=== PATIENT | male | born 1950 | race Caucasian/White ===

== ENCOUNTER 2020-01-22 08:55 | Inpatient (IN) | payer MEDICARE ==
[~2020-01-22] VITALS: Ht 170.2 cm; Wt 162.5 kg
[2020-01-22 09:05] VITALS: BP 134/90
--- NOTE | 2020-01-22 09:05 | NUR ---
ED Nurse Note: Patient RED from [address] d/t 06/30, aching, non-radiating, upper right quadrant, abdominal pain x 2 weeks. Patient states he was dx w/ kidney cancer recently and has gallstones. Patient AxO x 4, no s/s of acute distress. Patient on the monitoring engineer, placed in hospital gown, bed in lowest position.
--- NOTE | 2020-01-22 09:09 | Emergency Room Report ---
History of Present Illness General Chief Complaint: Abdominal Pain Source: Patient, EMS Present Illness HPI Patient is a 69-year-old male sent in from facility for increased abdominal pain. Prior history of cancer as well as CHF and DVT. Patient had recent CT imaging which showed increased biliary duct dilation. Patient a prior history of CHF and had been taking Lasix. He denied any increased shortness of breath or increased leg swelling at this time. Had been able to ambulate with a walker. He reports urinating. Denies any fever. Patient reports having some right upper abdominal pain. Allergies: Coded Allergies: SULFAMETHOXAZOLE (Verified Allergy, Unknown, 01/22/20) TRIMETHOPRIM (Verified Allergy, Unknown, 01/22/20) VANCOMYCIN (Verified Allergy, Unknown, 01/22/20) COVID-19 Screening Contact w/high risk pt: No Experienced COVID-19 symptoms?: No COVID-19 Testing performed ROLL CAPPER: Yes - 01/06/20 COVID-19 Screening: Negative COVID-19 COVID-19 Testing Source: unk source Patient History Past Medical History: see triage record Reviewed Nursing Documentation: PMH: Agreed; PSxH: Agreed Nursing Documentation-PMH Hx Cardiac Problems: Yes - DVT, CHF, IN, AFIB Hx Gastrointestinal Problems: Yes - DIVERTICULOSIS, DIAPHRAGMATIC HERNIA, GERD Hx Cerebrovascular Accident: Yes - PVD,LUMBAR DISC Review of Systems All Other Systems: negative except mentioned in HPI Physical Exam Vital Signs Date Time Temp Pulse Resp B/P (MAP) Pulse Ox O2 Delivery O2 Flow Rate FiO2 01/22/20 08:58 98.1 70 20 134/90 (105) 94 Room Air Sp02 EP Interpretation: reviewed, normal General Appearance: normal inspection, alert, GCS 15, non-toxic, obese, Chronically Ill Head: atraumatic ENT: normal ENT inspection, hearing grossly normal, normal voice Neck: normal inspection, full range of motion, supple, no bony tend Respiratory: normal inspection, lungs clear, normal breath sounds, no respiratory distress, no retraction, no wheezing Cardiovascular #1: regular rate, rhythm, no edema, edema - 3 + Gastrointestinal: normal inspection, normal bowel sounds, non tender, soft, no guarding, no hernia Genitourinary: no CVA tenderness Musculoskeletal: normal inspection, back normal, normal range of motion Neurologic: alert, motor strength/tone normal, oriented x3, responsive, speech normal, normal inspection Psychiatric: normal inspection, judgement/insight normal, mood/affect normal Medical Decision Making ER Course Patient presented for abdominal pain. Differential diagnosis include was not limited to choledocholithiasis, cholecystitis, pancreatitis, among others. Because of complexity of patient's case laboratory tests and imaging studies were ordered. Last Vital Signs Date Time Temp Pulse Resp B/P (MAP) Pulse Ox O2 Delivery O2 Flow Rate FiO2 01/22/20 08:58 98.1 70 20 134/90 (105) 94 Room Air Carl Hester MD Jan 22, 2020 09:09
[2020-01-22] MEDS ORDERED: PROTONIX40 MG ORAL (09:24)
[2020-01-22] MEDS ORDERED: MILK OF MA2400 MG/10 ORAL (09:24)
[2020-01-22] MEDS ORDERED: POTASSIUM CHLO20 ME2 ORAL (09:24)
[2020-01-22] MEDS ORDERED: PENTOXIFYLLINE400 MG ORAL (09:24)
[2020-01-22] MEDS ORDERED: FUROSEMIDE20 M1 ORAL (09:24)
[2020-01-22] MEDS ORDERED: ASPIRIN EC81 MG ORAL (09:24)
[2020-01-22] MEDS ORDERED: BISACODYL5 MG ORAL (09:24)
[2020-01-22] MEDS ORDERED: TRAMADOL HCL50 MG ORAL (09:24)
[2020-01-22] MEDS ORDERED: COMBIVENT RESPIM4 GM IH (09:24)
--- NOTE | 2020-01-22 09:45 | NUR ---
ED Nurse Note: US at bedside
--- NOTE | 2020-01-22 10:00 | NUR ---
ED Nurse Note: 22 g IV started in right wrist, blood and urine sent to lab
[2020-01-22 11:23] LABS: BASOPHILS % (AUTO) 1.1 % (0.0-2.0); EOSINOPHILS % (AUTO) 3.5 % (0.0-3.0); HEMATOCRIT 42.2 % (42.0-52.0); HEMOGLOBIN 13.5 G/DL (14.2-18.0); LYMPHOCYTES % (AUTO) 23.8 % (20.0-45.0); MEAN CORPUSCULAR VOLUME 103 FL (80-99); MONOCYTES % (AUTO) 11.8 % (1.0-10.0); NEUTROPHILS % (AUTO) 59.8 % (45.0-75.0); PLATELET COUNT 140 K/UL (150-450); RED BLOOD COUNT 4.09 M/UL (4.70-6.10); RED CELL DISTRIBUTION WIDTH 13.4 % (11.6-14.8); WHITE BLOOD COUNT 5.3 K/UL (4.8-10.8)
[2020-01-22 11:26] LABS: ANION GAP 7 mmol/L (5-15); BLOOD UREA NITROGEN 16 mg/dL (7-18); CALCIUM 8.6 MG/DL (8.5-10.1); CARBON DIOXIDE 30 MMOL/L (21-32); CHLORIDE 106 MMOL/L (98-107); CREATININE 1.2 MG/DL (0.55-1.30); POTASSIUM 4.2 MMOL/L (3.5-5.1); SODIUM 143 MMOL/L (136-145)
[2020-01-22 11:30] LABS: ALANINE AMINOTRANSFERASE 21 U/L (12-78); ALBUMIN 3.2 G/DL (3.4-5.0); ALKALINE PHOSPHATASE 61 U/L (46-116); ASPARTATE AMINO TRANSFERASE 15 U/L (15-37); BILIRUBIN,TOTAL 0.5 MG/DL (0.2-1.0)
[2020-01-22 11:35] LABS: APPEARANCE,URINE CLEAR; BILIRUBIN, URINE NEGATIVE (NEGATIVE); COLOR,URINE YELLOW; GLUCOSE, URINE (UA) NEGATIVE (NEGATIVE); KETONES,URINE NEGATIVE (NEGATIVE); LEUKOCYTE ESTERASE ,URINE NEGATIVE (NEGATIVE); NITRITE,URINE NEGATIVE (NEGATIVE); PH,URINE 6 (4.5-8.0); PROTEIN,URINE NEGATIVE (NEGATIVE); UROBILINOGEN,URINE NORMAL MG/DL (0.0-1.0)
--- NOTE | 2020-01-22 11:45 | NUR ---
ED Nurse Note: Patient resting in bed, no s/s of acute distress. Belonging list reviewed with patient and completed.
[2020-01-22] MEDS ORDERED: traMADol 50mg tab ORAL PRN (19:00)
[2020-01-22] MEDS ORDERED: Albuterol/Ipratropium 3ml neb HHN PRN (19:00)
--- NOTE | 2020-01-22 19:14 | History and Physical ---
History of Present Illness General Date patient seen: Jan 22, 2020 Time patient seen: 12:00 Reason for Hospitalization: Abdominal Pain Present Illness HPI 69-year-old male sent in from [facility] in [place] for increased abdominal pain. Prior history of cancer reported renal cancer ( patient has electronic files and will email them for review later today ) as well as systolic CHF which is compensated, prior PE and DVT with intolerance to anticoagulation due to reported hemorrhage in the renal parenchyma, Left renal cancer of uncertain etiology and non intervened on due to unclear reasons ( reports pending review ). Patient had recent CT imaging which showed increased biliary duct dilation and porcelain "mummified" gallbladder. He denied any increased shortness of breath or increased leg swelling at this time and has baseline venous stasis and lower extremity edema with chronic skin changes. He has been able to ambulate with a walker. He reports urinating. Denies any fever. Patient reports having some right upper abdominal pain and nausea. Admission is needed for surgical consultation and assessment. Allergies: Coded Allergies: SULFAMETHOXAZOLE (Verified Allergy, Unknown, 01/22/20) TRIMETHOPRIM (Verified Allergy, Unknown, 01/22/20) VANCOMYCIN (Verified Allergy, Unknown, 01/22/20) COVID-19 Screening Contact w/high risk pt: No Recent Travel to affected area: No Experienced COVID-19 symptoms?: No Medication History Scheduled Aspirin Ec* (Aspirin Ec*), 81 MG ORAL DAILY, (Reported) Bisacodyl* (Dulcolax*), 10 MG ORAL DAILY, (Reported) Furosemide* (Lasix*), 20 MG ORAL DAILY, (Reported) Magnesium Hydroxide* (Milk Of Magnesia*), 30 ML ORAL DAILY, (Reported) Pantoprazole* (Protonix*), 20 MG ORAL DAILY, (Reported) Pentoxifylline* (Trental*), 400 MG ORAL THREE TIMES A DAY, (Reported) Potassium Chloride (Potassium Chloride), 20 MEQ ORAL DAILY, (Reported) Scheduled PRN Tramadol Hcl* (Ultram*), 50 MG ORAL Q6H PRN for For Pain, (Reported) Miscellaneous Medications Ipratropium/Albuterol Sulfate (Combivent Resp[facility]at [facility]), 4 GM IH, ( Reported) Patient History Healthcare decision maker Resuscitation status Advanced Directive on File Review of Systems Constitutional: Reports: see HPI All Other Systems: negative except mentioned in HPI Physical Exam General Appearance: WD/WN, moderate distress Lines, tubes and drains: peripheral HEENT: normocephalic, atraumatic Neck: non-tender Respiratory/Chest: lungs clear Cardiovascular/Chest: normal rate Abdomen: soft, other - obese with some RUQ discomfort. 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 Musculoskeletal: normal muscle bulk Last 24 Hour Vital Signs Date Time Temp Pulse Resp B/P (MAP) Pulse Ox O2 Delivery O2 Flow Rate FiO2 01/22/20 09:05 98.1 72 20 134/90 94 Room Air 01/22/20 09:05 72 20 Room Air 01/22/20 08:58 98.1 70 20 134/90 (105) 94 Room Air Laboratory Tests Test 01/22/20 10:55 01/22/20 11:00 White Blood Count 5.3 K/UL (4.8-10.8) Red Blood Count 4.09 M/UL (4.70-6.10) L Hemoglobin 13.5 G/DL (14.2-18.0) L Hematocrit 42.2 % (42.0-52.0) Mean Corpuscular Volume 103 FL (80-99) H Mean Corpuscular Hemoglobin 33.2 PG (27.0-31.0) H Mean Corpuscular Hemoglobin Concent 32.1 G/DL (32.0-36.0) Red Cell Distribution Width 13.4 % (11.6-14.8) Platelet Count 140 K/UL (150-450) L Mean Platelet Volume 7.0 FL (6.5-10.1) Neutrophils (%) (Auto) 59.8 % (45.0-75.0) Lymphocytes (%) (Auto) 23.8 % (20.0-45.0) Monocytes (%) (Auto) 11.8 % (1.0-10.0) H Eosinophils (%) (Auto) 3.5 % (0.0-3.0) H Basophils (%) (Auto) 1.1 % (0.0-2.0) Prothrombin Time 11.4 SEC (9.30-11.50) Prothromb Time International Ratio 1.0 (0.9-1.1) Sodium Level 143 MMOL/L (136-145) Potassium Level 4.2 MMOL/L (3.5-5.1) Chloride Level 106 MMOL/L (98-107) Carbon Dioxide Level 30 MMOL/L (21-32) Anion Gap 7 mmol/L (5-15) Blood Urea Nitrogen 16 mg/dL (7-18) Creatinine 1.2 MG/DL (0.55-1.30) Estimat Glomerular Filtration Rate > 60 mL/min (>60) Glucose Level 101 MG/DL (74-106) Calcium Level 8.6 MG/DL (8.5-10.1) Total Bilirubin 0.5 MG/DL (0.2-1.0) Aspartate Amino Transf (AST/SGOT) 15 U/L (15-37) Alanine Aminotransferase (ALT/SGPT) 21 U/L (12-78) Alkaline Phosphatase 61 U/L (46-116) Total Protein 6.5 G/DL (6.4-8.2) Albumin 3.2 G/DL (3.4-5.0) L Globulin 3.3 g/dL Albumin/Globulin Ratio 1.0 (1.0-2.7) Lipase 164 U/L (73-393) Urine Color Yellow Urine Appearance Clear Urine pH 6 (4.5-8.0) Urine Specific [place] 1.020 (1.005-1.035) Urine Protein Negative (NEGATIVE) Urine Glucose (UA) Negative (NEGATIVE) Urine Ketones Negative (NEGATIVE) Urine Blood Negative (NEGATIVE) Urine Nitrite Negative (NEGATIVE) Urine Bilirubin Negative (NEGATIVE) Urine Urobilinogen Normal MG/DL (0.0-1.0) Urine Leukocyte Esterase Negative (NEGATIVE) Height (Feet): 5 Height (Inches): 7.00 Weight (Pounds): 350 Assessment/Plan Status: stable Assessment/Plan: 69-year-old male with prior history of possible renal cancer and gallstones presenting with: # Abdominal pain RUQ US with gallstones. Reportedly no CBD dilatation ( report pending as computer system with problems today) WIll review findings and surgery consultation with Dr. Cordon requested LFT's and TB within normal limits Symptomatic treatment with tramadol # Reported history of renal cancer Review patient's medical records. He was given my email ( [email or web address]) to send the files and not received yet. COnsider oncology consultation. # PVD COntinue Pentoxyphilline and asa # History of systolic CHF COntinue Lasix and KCl replacement # 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 Use only ASA for now bilateral lower extremity US ordered. # FULL CODE # disposition likely to return to SNF Benita Braxton MD Jan 22, 2020 19:14
--- NOTE | 2020-01-22 19:30 | NUR ---
NURSE NOTES: Received pt from FACTORY REPRESENTATIVEJEANNA Rivera, all admission assessments and instructions done and pt verbally confirmed to understand all. pt is alert and orient x4. pt is in RA, No SOB or acute respiratory distress noted. pt has intact iv access R wrist 22g SL. Pt is on continues heart monitoring. Dr Braxton is aware about admission and all labs and V/S and ECG, all orders noted and carried out. bi lower extremities is edematous and very dry and redness, Dr Braxton is aware and ordered bruno duplex, noted and carried out. all belongings are with pt and pt signed belongings list. pt consumed 100% dinner and tolerated well. Dr Flores called and ask to tell Dr Braxton about L renal tumor, Dr Braxton is aware, MD will F/U. all needs attended, bed is locked and is in the lowest position, call light within easy reach. will continue to monitor. Report given to JEANNA Whitfield.
--- NOTE | 2020-01-22 19:56 | NUR ---
NURSE NOTES: Received report from JEANNA Singh. Patient is awake, alert and oriented x 4. engine monitor is in place, shows sinus rhythm with no chest pain reported. On regular diet, instructed and amenable. On room air and no shortness of breath nor desaturation at this time. IV site is on right wrist g-22 saline lock that is patent and intact. Patient is ambulatory but weak and with walker at bedside. Safety measures are in place, bed in lowest and locked position, side rails up x 2. Call light button and bedside table within reach, instructed to call for any assistance needed. Will continue plan of care.
[2020-01-22 20:00] VITALS: BP 131/70
[2020-01-22] MEDS: Aspirin Baby 81mg ORAL SCH (21:23)
[2020-01-23] VITALS: BP 138/84
[2020-01-23 04:00] VITALS: BP 132/75
[2020-01-23 06:20] LABS: BASOPHILS % (AUTO) 1.7 % (0.0-2.0); EOSINOPHILS % (AUTO) 3.6 % (0.0-3.0); HEMATOCRIT 42.5 % (42.0-52.0); HEMOGLOBIN 14.1 G/DL (14.2-18.0); LYMPHOCYTES % (AUTO) 25.6 % (20.0-45.0); MEAN CORPUSCULAR VOLUME 100 FL (80-99); MONOCYTES % (AUTO) 8.3 % (1.0-10.0); NEUTROPHILS % (AUTO) 60.8 % (45.0-75.0); PLATELET COUNT 152 K/UL (150-450); RED BLOOD COUNT 4.24 M/UL (4.70-6.10); RED CELL DISTRIBUTION WIDTH 12.5 % (11.6-14.8); WHITE BLOOD COUNT 4.4 K/UL (4.8-10.8)
[2020-01-23 06:39] LABS: PHOSPHORUS 4.4 MG/DL (2.5-4.9)
[2020-01-23 06:43] LABS: ALANINE AMINOTRANSFERASE 20 U/L (12-78); ALBUMIN/GLOBULIN RATIO 0.9 (1.0-2.7); ALKALINE PHOSPHATASE 66 U/L (46-116); ANION GAP 7 mmol/L (5-15); ASPARTATE AMINO TRANSFERASE 16 U/L (15-37); BILIRUBIN,TOTAL 0.6 MG/DL (0.2-1.0); BLOOD UREA NITROGEN 14 mg/dL (7-18); CALCIUM 8.4 MG/DL (8.5-10.1); CARBON DIOXIDE 27 MMOL/L (21-32); CHLORIDE 107 MMOL/L (98-107); CREATININE 1.1 MG/DL (0.55-1.30); POTASSIUM 4.4 MMOL/L (3.5-5.1); SODIUM 141 MMOL/L (136-145)
--- NOTE | 2020-01-23 07:30 | NUR ---
NURSE NOTES: Received pt from JEANNA Whitfield, pt is alert and orient x4. pt is in RA, No SOB or acute respiratory distress noted. pt has intact iv access R wrist 22g SL. Pt is on continues heart monitoring. bi lower extremities is edematous and very dry and redness, no complain of pain at this moment, all needs attended, bed is locked and is in the lowest position, call light within easy reach. will continue to monitor.
--- NOTE | 2020-01-23 07:30 | NUR ---
NURSE HAND-OFF REPORT: Important Events on Shift: patient is resting well the whole shift Patient Status: Patient is awake, on bed eating breakfast in stable condition without complaints made at this time Diet: Regular diet Pending Orders: Venous duplex Pending Results/Labs: none Pending MD notification: none Latest Vital Signs: Temperature 97.7 , Pulse 64 , B/P 132 /75 , Respiratory Rate 19 , O2 SAT 98 , Room Air, O2 Flow Rate . Vital Sign Comment: stable the whole shift EKG Rhythm: Sinus Bradycardia Rhythm change?: Y MD Notified?: N - MD Response: Latest [place] Fall Score: 45 Fall Risk: High Risk Safety Measures: Call light Within Reach, Bed Alarm Zone 1, Side Rails Side Rails x2, Bed position Low and Locked. Fall Precautions: Yellow Socks Yellow Gown Door Sign Patient Fall Education Report given to JEANNA Singh.
[2020-01-23 08:00] VITALS: BP 134/81
[2020-01-23] MEDS: Aspirin Baby 81mg ORAL SCH ×2 (09:27→17:35)
--- NOTE | 2020-01-23 11:00 | General Progress Note ---
Assessment/Plan Status: stable, unchanged Assessment/Plan: 69-year-old male with prior history of possible renal cancer and gallstones presenting with: # Abdominal pain RUQ US with gallstones AND 4.8 CM X 5.6 CM LEFT LOWER POLE RENAL MASS [facility] CTAP W CONTRAST 12/28/19 5.8 CM PARTIALLY EXOPHYTIC HETEROGENEOUSLY ENHANCING SOFT TISSUE MASS AT THE INFERIOR POLE OF THE LEFT KIDNEY. MOST CONSISTENT WITH RENAL CELL CARCINOMA, NO RENAL VEIN INVASION HEPATIC STEATOSIS CHOLELITHIASIS COLONIC DIVERTICULOSIS WITHOUT DIVERTICULITIS SEVERE LEFT HIP OSTEOARTHRITIS Will request oncology consultation for guidance Surgery consultation pending with Dr. Poole. LFT's and TB within normal limits Symptomatic treatment with tramadol # Reported history of renal cancer - Not operated at [facility] last month. Will request hospital records for detail and oncology consultation. [facility] CTAP W CONTRAST 12/28/19 5.8 CM PARTIALLY EXOPHYTIC HETEROGENEOUSLY ENHANCING SOFT TISSUE MASS AT THE INFERIOR POLE OF THE LEFT KIDNEY. 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 Use only ASA for now bilateral lower extremity US ordered. # FULL CODE # disposition likely to return to SNF Subjective Date patient seen: Jan 23, 2020 Time patient seen: 09:50 ROS Limited/Unobtainable: No Allergies: Coded Allergies: SULFAMETHOXAZOLE (Verified Allergy, Unknown, 01/22/20) TRIMETHOPRIM (Verified Allergy, Unknown, 01/22/20) VANCOMYCIN (Verified Allergy, Unknown, 01/22/20) Subjective Feels well today. Abdominal discomfort is stable. Leg pain is at baseline. Objective Last 24 Hour Vital Signs Date Time Temp Pulse Resp B/P (MAP) Pulse Ox O2 Delivery O2 Flow Rate FiO2 01/23/20 09:25 134/81 01/23/20 08:00 98.6 61 20 134/81 (98) 98 01/23/20 07:36 80 01/23/20 04:00 97.7 61 19 132/75 (94) 98 01/23/20 04:00 64 01/23/20 00:00 64 01/23/20 00:00 98.2 65 20 138/84 (102) 97 01/22/20 21:23 142/83 01/22/20 21:00 Room Air 01/22/20 20:00 97.9 71 20 131/70 (90) 97 01/22/20 19:41 Room Air 01/22/20 17:47 89 Intake and Output 01/22/20 01/23/20 19:00 07:00 Intake Total 700 ml Output Total 850 ml Balance -150 ml Intake Oral 700 ml Output Urine Total 850 ml # Voids 4 Laboratory Tests 01/22/20 10:55: White Blood Count 5.3, Red Blood Count 4.09L, Hemoglobin 13.5L, Hematocrit 42.2 , Mean Corpuscular Volume 103H, Mean Corpuscular Hemoglobin 33.2H, Mean Corpuscular Hemoglobin Concent 32.1, Red Cell Distribution Width 13.4, Platelet Count 140L, Mean Platelet Volume 7.0, Neutrophils (%) (Auto) 59.8, Lymphocytes ( %) (Auto) 23.8, Monocytes (%) (Auto) 11.8H, Eosinophils (%) (Auto) 3.5H, Basophils (%) (Auto) 1.1, Prothrombin Time 11.4, Prothromb Time International Ratio 1.0, Sodium Level 143, Potassium Level 4.2, Chloride Level 106, Carbon Dioxide Level 30, Anion Gap 7, Blood Urea Nitrogen 16, Creatinine 1.2, Estimat Glomerular Filtration Rate > 60, Glucose Level 101, Calcium Level 8.6, Total Bilirubin 0.5, Aspartate Amino Transf (AST/SGOT) 15, Alanine Aminotransferase ( ALT/SGPT) 21, Alkaline Phosphatase 61, Total Protein 6.5, Albumin 3.2L, Globulin 3.3, Albumin/Globulin Ratio 1.0, Lipase 164 01/22/20 11:00: Urine Color Yellow, Urine Appearance Clear, Urine pH 6, Urine Specific [place] 1.020, Urine Protein Negative, Urine Glucose (UA) Negative, Urine Ketones Negative, Urine Blood Negative, Urine Nitrite Negative, Urine Bilirubin Negative , Urine Urobilinogen Normal, Urine Leukocyte Esterase Negative 01/23/20 06:00: White Blood Count 4.4L, Red Blood Count 4.24L, Hemoglobin 14.1L, Hematocrit 42.5 , Mean Corpuscular Volume 100H, Mean Corpuscular Hemoglobin 33.2H, Mean Corpuscular Hemoglobin Concent 33.1, Red Cell Distribution Width 12.5, Platelet Count 152, Mean Platelet Volume 6.4L, Neutrophils (%) (Auto) 60.8, Lymphocytes ( %) (Auto) 25.6, Monocytes (%) (Auto) 8.3, Eosinophils (%) (Auto) 3.6H, Basophils (%) (Auto) 1.7, Sodium Level 141, Potassium Level 4.4, Chloride Level 107, Carbon Dioxide Level 27, Anion Gap 7, Blood Urea Nitrogen 14, Creatinine 1.1, Estimat Glomerular Filtration Rate > 60, Glucose Level 94, Calcium Level 8.4L, Total Bilirubin 0.6, Aspartate Amino Transf (AST/SGOT) 16, Alanine Aminotransferase (ALT/SGPT) 20, Alkaline Phosphatase 66, Total Protein 6.5, Albumin 3.0L, Globulin 3.5, Albumin/Globulin Ratio 0.9L, Hemoglobin A1c 6.7H, Phosphorus Level 4.4, Magnesium Level 2.0 Height (Feet): 5 Height (Inches): 7.00 Weight (Pounds): 350 General Appearance: moderate distress EENT: PERRL/EOMI Neck: non-tender Cardiovascular: normal rate Respiratory/Chest: lungs clear Abdomen: normal bowel sounds 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 Objective US ABDOMEN 01/22/20 4.8 X 5.6 CM LEFT LOWER POLE RENAL MASS. POSSIBLY NEOPLASTIC. CHOLELITHIASIS, NO CBD DILATATION. DIFFUSE ECHOGENICITY CONSISTENT WITH HEPATOCELLULAR DISEASE. SMALL LIVER CYST PRIOR DATA REVIEWED (PATIENT HAS ELECTRONIC COPIES OF THE REPORTS) [facility] CTAP W CONTRAST 12/28/19 5.8 CM PARTIALLY EXOPHYTIC HETEROGENEOUSLY ENHANCING SOFT TISSUE MASS AT THE INFERIOR POLE OF THE LEFT KIDNEY. MOST CONSISTENT WITH RENAL CELL CARCINOMA, NO RENAL VEIN INVASION HEPATIC STEATOSIS CHOLELITHIASIS COLONIC DIVERTICULOSIS WITHOUT DIVERTICULITIS SEVERE LEFT HIP OSTEOARTHRITIS CT KUB 07/27/19 5.7 CM FLUID ATTENUATING LESION LEFT KIDNEY LOWER POLE Benita Braxton MD Jan 23, 2020 11:00
[2020-01-23 12:00] VITALS: BP 125/59
--- NOTE | 2020-01-23 12:36 | Consultation ---
History of Present Illness General Date patient seen: Jan 23, 2020 Reason for Hospitalization: Abdominal Pain Present Illness HPI This is a very pleasant 69-year-old male with multiple medical comorbidities including CHF fluid retention history of potential renal cancer history of potential hepatobiliary disease who presented to [facility] with worsening abdominal pain admitted for care and management. On admission given abdominal pain and history surgery called to eval and assist with care. Patient seen, patient evaluated, chart reviewed. States abdominal pain improved right now but is very concerned given his history of renal cancer that was diagnosed but not informed in detail about as well as his history of biliary disease and states that someone told him he may have liver problems in the future given this and considerations for surgery is necessary. He has been given limited information though he is very apt in keeping his medical history and up-to-date about his care plan. Complete review of systems performed and history taken at bedside. Chart reviewed. abd pain prior 10 cramping no radiation upper abdomen. vague complaints. Allergies: Coded Allergies: SULFAMETHOXAZOLE (Verified Allergy, Unknown, 01/22/20) TRIMETHOPRIM (Verified Allergy, Unknown, 01/22/20) VANCOMYCIN (Verified Allergy, Unknown, 01/22/20) COVID-19 Screening Contact w/high risk pt: No Recent Travel to affected area: No Experienced COVID-19 symptoms?: No Medication History Scheduled Aspirin Ec* (Aspirin Ec*), 81 MG ORAL DAILY, (Reported) Bisacodyl* (Dulcolax*), 10 MG ORAL DAILY, (Reported) Furosemide* (Lasix*), 20 MG ORAL DAILY, (Reported) Magnesium Hydroxide* (Milk Of Magnesia*), 30 ML ORAL DAILY, (Reported) Pantoprazole* (Protonix*), 20 MG ORAL DAILY, (Reported) Pentoxifylline* (Trental*), 400 MG ORAL THREE TIMES A DAY, (Reported) Potassium Chloride (Potassium Chloride), 20 MEQ ORAL DAILY, (Reported) Scheduled PRN Tramadol Hcl* (Ultram*), 50 MG ORAL Q6H PRN for For Pain, (Reported) Miscellaneous Medications Ipratropium/Albuterol Sulfate (Combivent Respimat Inhal [place]), 4 GM IH, ( Reported) Patient History History Provided By: Patient, Medical Record, PMD Healthcare decision maker Resuscitation status Advanced Directive on File Past Medical/Surgical History Past Medical/Surgical History: (1) Abdominal pain (2) Renal mass (3) Acute embolism and thrombosis of femoral vein, bilateral (4) Acute embolism and thrombosis of popliteal vein, bilateral (5) Unspecified systolic (congestive) heart failure (6) Peripheral vascular disease, unspecified (7) Spinal stenosis, site unspecified (8) Malignant melanoma of skin, unspecified Review of Systems Review of Symptoms General ROS: no weight loss or fever Psychological ROS: no depression or mood changes, no memory loss Ophthalmic ROS: no visual changes or eye irritation ENT ROS: no nasal congestion, hearing loss, dizziness Allergy and Immunology ROS: no allergic symptoms or urticaria Hematological and Lymphatic ROS: no swollen glands, unusual bleeding or bruising Endocrine ROS: no polyuria, polydipsia, weight changes, temperature intolerance Respiratory ROS: no cough, shortness of breath, or wheezing Cardiovascular ROS: no chest pain or dyspnea on exertion Gastrointestinal ROS: denies abdominal pain, bright red blood in stool. Musculoskeletal ROS: no myalgias or arthralgias Neurological ROS: no TIA or stroke symptoms Dermatological ROS: no new or changing skin lesions, rashes or pruritis Physical Exam Physical Exam General appearance: alert, cooperative, no distress, appears stated age Head: Normocephalic, without obvious abnormality, atraumatic Eyes: conjunctivae/corneas clear. PERRL, EOM's intact. Fundi benign Throat: Lips, mucosa, and tongue normal. Teeth and gums normal Neck: supple, symmetrical, trachea midline, no adenopathy, thyroid: not enlarged, symmetric, no tenderness/mass/nodules, no carotid bruit and no JVD Lungs: clear to auscultation bilaterally Heart: regular rate and rhythm, S1, S2 normal, no murmur, click, rub or gallop Abdomen: soft, non-tender. Bowel sounds normal. No masses, no organomegaly obese Extremities: extremities normal, atraumatic, no cyanosis or edema Pulses: 2+ and symmetric Skin: Skin color, texture, turgor normal. No rashes or lesions Neurologic: Grossly normal Last 24 Hour Vital Signs Date Time Temp Pulse Resp B/P (MAP) Pulse Ox O2 Delivery O2 Flow Rate FiO2 01/23/20 12:16 125/59 01/23/20 12:00 98.1 87 20 125/59 (81) 98 9/4/20 09:25 134/81 01/23/20 09:00 Room Air 01/23/20 08:00 98.6 61 20 134/81 (98) 98 01/23/20 07:36 80 01/23/20 04:00 97.7 61 19 132/75 (94) 98 01/23/20 04:00 64 01/23/20 00:00 64 01/23/20 00:00 98.2 65 20 138/84 (102) 97 01/22/20 21:23 142/83 01/22/20 21:00 Room Air 01/22/20 20:00 97.9 71 20 131/70 (90) 97 01/22/20 19:41 Room Air 01/22/20 17:47 89 Intake and Output 01/22/20 01/23/20 19:00 07:00 Intake Total 700 ml Output Total 850 ml Balance -150 ml Intake Oral 700 ml Output Urine Total 850 ml # Voids 4 Laboratory Tests Test 01/23/20 06:00 White Blood Count 4.4 K/UL (4.8-10.8) L Red Blood Count 4.24 M/UL (4.70-6.10) L Hemoglobin 14.1 G/DL (14.2-18.0) L Hematocrit 42.5 % (42.0-52.0) Mean Corpuscular Volume 100 FL (80-99) H Mean Corpuscular Hemoglobin 33.2 PG (27.0-31.0) H Mean Corpuscular Hemoglobin Concent 33.1 G/DL (32.0-36.0) Red Cell Distribution Width 12.5 % (11.6-14.8) Platelet Count 152 K/UL (150-450) Mean Platelet Volume 6.4 FL (6.5-10.1) L Neutrophils (%) (Auto) 60.8 % (45.0-75.0) Lymphocytes (%) (Auto) 25.6 % (20.0-45.0) Monocytes (%) (Auto) 8.3 % (1.0-10.0) Eosinophils (%) (Auto) 3.6 % (0.0-3.0) H Basophils (%) (Auto) 1.7 % (0.0-2.0) Sodium Level 141 MMOL/L (136-145) Potassium Level 4.4 MMOL/L (3.5-5.1) Chloride Level 107 MMOL/L (98-107) Carbon Dioxide Level 27 MMOL/L (21-32) Anion Gap 7 mmol/L (5-15) Blood Urea Nitrogen 14 mg/dL (7-18) Creatinine 1.1 MG/DL (0.55-1.30) Estimat Glomerular Filtration Rate > 60 mL/min (>60) Glucose Level 94 MG/DL (74-106) Hemoglobin A1c 6.7 % (4.3-6.0) H Calcium Level 8.4 MG/DL (8.5-10.1) L Phosphorus Level 4.4 MG/DL (2.5-4.9) Magnesium Level 2.0 MG/DL (1.8-2.4) Total Bilirubin 0.6 MG/DL (0.2-1.0) Aspartate Amino Transf (AST/SGOT) 16 U/L (15-37) Alanine Aminotransferase (ALT/SGPT) 20 U/L (12-78) Alkaline Phosphatase 66 U/L (46-116) Total Protein 6.5 G/DL (6.4-8.2) Albumin 3.0 G/DL (3.4-5.0) L Globulin 3.5 g/dL Albumin/Globulin Ratio 0.9 (1.0-2.7) L Height (Feet): 5 Height (Inches): 7.00 Weight (Pounds): 350 Medications Current Medications Medications (Trade) Dose Ordered Sig/Gloria Route PRN Reason Start Time Stop Time Status Last Admin Dose Admin Acetaminophen (Tylenol) 650 mg Q6H PRN ORAL fever T>100.3 and mild pain 01/22/20 19:00 02/21/20 18:59 Albuterol/ Ipratropium (Albuterol/ Ipratropium) 3 ml Q6H PRN HHN Shortness of Breath 01/22/20 19:00 01/27/20 18:59 Aspirin (ASA) 81 mg BID ORAL 01/22/20 20:00 03/07/20 19:59 01/23/20 09:27 Bisacodyl (Dulcolax) 10 mg DAILYPRN PRN RECTAL Constipation 01/22/20 19:00 04/21/20 18:59 Furosemide (Lasix) 20 mg DAILY ORAL 01/23/20 09:00 02/22/20 08:59 01/23/20 09:27 Pantoprazole (Protonix) 40 mg DAILY ORAL 01/23/20 09:00 02/22/20 08:59 01/23/20 09:25 Pentoxifylline (TRENtal) 400 mg TID ORAL 01/22/20 21:00 04/21/20 20:59 01/23/20 12:16 Potassium Chloride (K-Dur) 20 meq DAILY ORAL 01/23/20 09:00 04/22/20 08:59 01/23/20 09:26 Tramadol HCl (Ultram) 50 mg Q12H PRN ORAL Severe Pain (Pain Scale 7-10) 01/22/20 19:00 01/29/20 18:59 Assessment/Plan Problem List: (1) Abdominal pain Assessment & Plan: 69-year-old male with abdominal discomfort. States worsening for some time now currently improved with medication. No nausea vomiting fever chills. Labs normal. States history of papillary disease and noted in prior imaging to have "mummified" gallbladder. Potential renal cancer. Prior imaging and history reviewed chart reviewed. Unfortunately very complex difficult case will require new imaging to evaluate the extent of problem. Currently he is stable comfortable without any significant complaints. There is concern for liver hepatobiliary disease that may be eminent or prominent given this history he explains. Thank you for letting participate in patient's care will follow with recommendations CT abdomen pelvis ordered Ultrasound abdomen ordered Labs ordered Thank you will follow with recommendations as above is available RUQ US with gallstones AND 4.8 CM X 5.6 CM LEFT LOWER POLE RENAL MASS DE US CTAP W CONTRAST 12/28/19 5.8 CM PARTIALLY EXOPHYTIC HETEROGENEOUSLY ENHANCING SOFT TISSUE MASS AT THE INFERIOR POLE OF THE LEFT KIDNEY. MOST CONSISTENT WITH RENAL CELL CARCINOMA, NO RENAL VEIN INVASION HEPATIC STEATOSIS CHOLELITHIASIS COLONIC DIVERTICULOSIS WITHOUT DIVERTICULITIS SEVERE LEFT HIP OSTEOARTHRITIS ICD Codes: R10.9 - Unspecified abdominal pain SNOMED: 43935757 (2) Renal mass ICD Codes: N28.89 - Other specified disorders of kidney and ureter SNOMED: 240807666 (3) Acute embolism and thrombosis of femoral vein, bilateral ICD Codes: I82.413 - Acute embolism and thrombosis of femoral vein, bilateral SNOMED: 682402490 (4) Acute embolism and thrombosis of popliteal vein, bilateral ICD Codes: I82.433 - Acute embolism and thrombosis of popliteal vein, bilateral SNOMED: 528026636 (5) Unspecified systolic (congestive) heart failure ICD Codes: I50.20 - Unspecified systolic (congestive) heart failure SNOMED: 66235544, 047135574 (6) Peripheral vascular disease, unspecified ICD Codes: I73.9 - Peripheral vascular disease, unspecified SNOMED: 032321548 (7) Spinal stenosis, site unspecified ICD Codes: M48.00 - Spinal stenosis, site unspecified SNOMED: 01128657 (8) Malignant melanoma of skin, unspecified ICD Codes: C43.9 - Malignant melanoma of skin, unspecified SNOMED: 60936281 Krishna Cordon Jan 23, 2020 12:36
[2020-01-23] MEDS ORDERED: Omnipaque-300 100ml vial INJ PRN (12:45)
--- NOTE | 2020-01-23 15:30 | NUR ---
CASE MANAGEMENT: INITIAL REVIEW 69 YO M RED FROM [address] CC: ABD PAIN PMHx: DVT, CHF, [place], AFIB SI;RENAL MASS. ABD PAIN VS: T 98.1 HR 70 RR 20 B/P 134/90 SATS 94% ON RA LABS: ALBUMIN 3.2 IS: ZOFRAN IV X1 PATIENT ADMITTED TO [facility] 01/22/2020 @ 1026 DCP: SNF PLAN OF CARE: GEN SURGERY CONSULT >> CT abdomen pelvis ordered. Ultrasound abdomen ordered
[2020-01-23 16:00] VITALS: BP 121/70
--- NOTE | 2020-01-23 16:44 | Diagnostic Imaging Report ---
Indication: Abdominal pain Technique: Gentile-scale and duplex images of the upper abdomen were obtained Comparison: none Findings: Gallbladder demonstrates gallstones. No gallbladder wall thickening nor pericholecystic fluid. Sonographic Delarosa's sign is negative. Common bile duct measures 5 mm in diameter. No intrahepatic biliary ductal dilatation. Liver demonstrates diffusely increased echogenicity, consistent with diffuse hepatocellular disease, most likely fatty change. It demonstrates a small cyst. Portal vein and hepatic veins are patent. Pancreas is unremarkable. Spleen is unremarkable. Left kidney measures 11.7 cm in length. Right kidney measures 12 cm length. Both kidneys demonstrate normal echogenicity. The left kidney demonstrates what appears to be a solid mass coming off of the lower pole, measures 4.8 cm x 5.6 cm diameter. No hydronephrosis. . Abdominal aorta is partially obscured by bowel gas, visualized portions are non-aneurysmal . Impression: 4.8 x 5.6 cm left lower pole renal mass. Possibly neoplastic. Further evaluation with contrast CT is recommended. This was discussed with patient's nurse at the time of interpretation Cholelithiasis. No biliary ductal dilatation Liver demonstrates diffusely increased echogenicity, consistent with diffuse hepatocellular disease, most likely fatty change. Small liver cyst Note incomplete visualization of the abdominal aorta
--- NOTE | 2020-01-23 16:45 | Diagnostic Imaging Report ---
Indication: Bilateral leg swelling. Prior history of deep venous thrombosis Technique: Grayscale and duplex images of the bilateral lower extremity veins Comparison: None Findings: Exam is technically limited due to patient body habitus. On the right, ACL duplex images demonstrate evidence of nonocclusive thrombus in the femoral and popliteal veins, resulting in incomplete compressibility. There is preserved flow, however. The peroneal vein could not be visualized. Other segments demonstrate no evidence of intraluminal thrombus. On the left, grayscale and duplex images demonstrate no evidence of intraluminal thrombus. Normal phasic Doppler waveforms, demonstrating normal augmentation response and no evidence of valvular insufficiency. Greater saphenous vein(s) and tibial veins are patent. Normal compressibility. Impression: Right femoral and popliteal veins demonstrate evidence of nonocclusive and likely chronic deep venous thrombosis. No evidence of deep venous thrombosis on the left
--- NOTE | 2020-01-23 17:09 | NUR ---
NURSE NOTES: pt signed consent form for contrast. pt signed authorization for release records for oncologist and is faxed to [facility] with fax: [phone] and got confirmed letter and all letters put in chart.
--- NOTE | 2020-01-23 18:42 | NUR ---
NURSE NOTES: Dr Braxton called and ordered to change the order to full code due to last conversation with pt that has and pr Dr Braxton pt requested full code. noted and carried out.
--- NOTE | 2020-01-23 19:29 | NUR ---
NURSE HAND-OFF REPORT: Important Events on Shift: Patient Status: Diet: Pending Orders: Pending Results/Labs: Pending MD notification: Latest Vital Signs: Temperature 98.3 , Pulse 60 , B/P 121 /70 , Respiratory Rate 20 , O2 SAT 98 , Room Air, O2 Flow Rate . Vital Sign Comment: EKG Rhythm: Sinus Bradycardia Rhythm change?: N MD Notified?: Hannah Braxton MD Response: Latest Wadsworth Fall Score: 60 Fall Risk: High Risk Safety Measures: Call light Within Reach, Bed Alarm Zone 1, Side Rails Side Rails x2, Bed position Low and Locked. Fall Precautions: Yellow Socks Yellow Gown Door Sign Patient Fall Education Report given to . Pt is awake and stable, no stress noted. endorsed plan of care, endorsed to F/U for oncologist report from [facility] and keep pt NPO from mid night for abd ct tomorrow.
--- NOTE | 2020-01-23 19:30 | NUR ---
NURSE NOTES: Received hand-off report from JEANNA Singh. Patient in stable condition, breathing even and unlabored, alert and orientedx4, resting high fowlers, able to verbalize needs, denies pain at this time, 22g IV on right wrist patent, flushing well, no infiltration, no redness no leaking noted. Bed alarm on, bed in lowest and locked position, two side rails up, call light within reach.
[2020-01-23 20:00] VITALS: BP 132/86
[2020-01-24] VITALS: BP 117/67
[2020-01-24 04:00] VITALS: BP 115/66
[2020-01-24 05:55] LABS: BASOPHILS % (AUTO) 1.4 % (0.0-2.0); EOSINOPHILS % (AUTO) 3.3 % (0.0-3.0); HEMATOCRIT 45.2 % (42.0-52.0); HEMOGLOBIN 14.8 G/DL (14.2-18.0); LYMPHOCYTES % (AUTO) 25.1 % (20.0-45.0); MEAN CORPUSCULAR VOLUME 101 FL (80-99); MONOCYTES % (AUTO) 9.6 % (1.0-10.0); NEUTROPHILS % (AUTO) 60.7 % (45.0-75.0); PLATELET COUNT 159 K/UL (150-450); RED BLOOD COUNT 4.47 M/UL (4.70-6.10); WHITE BLOOD COUNT 5.7 K/UL (4.8-10.8)
[2020-01-24 06:08] LABS: ALANINE AMINOTRANSFERASE 26 U/L (12-78); ALBUMIN 3.4 G/DL (3.4-5.0); ALBUMIN/GLOBULIN RATIO 0.9 (1.0-2.7); ALKALINE PHOSPHATASE 75 U/L (46-116); ANION GAP 8 mmol/L (5-15); ASPARTATE AMINO TRANSFERASE 17 U/L (15-37); BILIRUBIN,TOTAL 0.3 MG/DL (0.2-1.0); BLOOD UREA NITROGEN 18 mg/dL (7-18); CALCIUM 8.8 MG/DL (8.5-10.1); CARBON DIOXIDE 28 MMOL/L (21-32); CHLORIDE 106 MMOL/L (98-107); CREATININE 1.2 MG/DL (0.55-1.30); POTASSIUM 4.4 MMOL/L (3.5-5.1); SODIUM 142 MMOL/L (136-145)
--- NOTE | 2020-01-24 07:10 | NUR ---
NURSE HAND-OFF REPORT: Important Events on Shift: Patient Status: Full code, stable condition Diet: NPO due to procedure, patient consent form signed Pending Orders: Pending Results/Labs: MRSA, VRE, CRE pending Pending MD notification: Latest Vital Signs: Temperature 97.0 , Pulse 58 , B/P 115 /66 , Respiratory Rate 20 , O2 SAT 96 , Room Air, O2 Flow Rate . Vital Sign Comment: EKG Rhythm: Sinus Bradycardia Rhythm change?: N MD Notified?: Hannah Braxton MD Response: Latest Wadsworth Fall Score: 60 Fall Risk: High Risk Safety Measures: Call light Within Reach, Bed Alarm Zone 1, Side Rails Side Rails x2, Bed position Low and Locked. Fall Precautions: Yellow Socks Yellow Gown Door Sign Patient Fall Education Report given to Billie Hicks RN.
--- NOTE | 2020-01-24 07:52 | NUR ---
NURSE NOTES: Received report from JEANNA Bran. Pt A/O x4, no s/s of acute respiratory and cardiac distress. Currently on room air. SL on right wrist, patent and intact. Pt NPO for CT scan of abdomen w/ contrast. Consent signed. BLE edema noted. Bed in low position, side rails x2 and call light within reach. Will continue to monitor.
[2020-01-24 08:00] VITALS: BP 128/71
[2020-01-24] MEDS: Aspirin Baby 81mg ORAL SCH ×2 (09:12→17:30)
--- NOTE | 2020-01-24 10:31 | Surgery Progress Note ---
Surgery Progress Note Subjective Additional Comments US noted pending CT scan no n/v/f/c labs okay Objective Last 24 Hour Vital Signs Date Time Temp Pulse Resp B/P (MAP) Pulse Ox O2 Delivery O2 Flow Rate FiO2 01/24/20 09:12 128/71 01/24/20 09:00 Room Air 01/24/20 08:00 96.7 66 20 128/71 (90) 100 01/24/20 08:00 52 01/24/20 04:00 58 01/24/20 04:00 97.0 58 20 115/66 (82) 96 01/24/20 00:00 97.0 72 18 117/67 (84) 96 01/24/20 00:00 72 01/23/20 21:00 Room Air 01/23/20 20:00 83 01/23/20 20:00 99.3 83 20 132/86 (101) 98 01/23/20 17:35 121/70 01/23/20 16:00 98.3 60 20 121/70 (87) 98 01/23/20 15:57 59 01/23/20 12:16 125/59 01/23/20 12:00 98.1 87 20 125/59 (81) 98 01/23/20 11:39 86 I&O Intake and Output 01/23/20 01/24/20 19:00 07:00 Intake Total 650 ml Output Total 1200 ml Balance -1200 ml 650 ml Intake Oral 650 ml Output Urine Total 1200 ml # Voids 2 Dressing: other Wound: other Cardiovascular: RSR Respiratory: decreased breath sounds Abdomen: soft, non-tender, present bowel sounds Extremities: no edema, no tenderness, no cyanosis Laboratory Tests Test 01/24/20 05:00 White Blood Count 5.7 K/UL (4.8-10.8) Red Blood Count 4.47 M/UL (4.70-6.10) L Hemoglobin 14.8 G/DL (14.2-18.0) Hematocrit 45.2 % (42.0-52.0) Mean Corpuscular Volume 101 FL (80-99) H Mean Corpuscular Hemoglobin 33.0 PG (27.0-31.0) H Mean Corpuscular Hemoglobin Concent 32.7 G/DL (32.0-36.0) Red Cell Distribution Width 13.0 % (11.6-14.8) Platelet Count 159 K/UL (150-450) Mean Platelet Volume 6.4 FL (6.5-10.1) L Neutrophils (%) (Auto) 60.7 % (45.0-75.0) Lymphocytes (%) (Auto) 25.1 % (20.0-45.0) Monocytes (%) (Auto) 9.6 % (1.0-10.0) Eosinophils (%) (Auto) 3.3 % (0.0-3.0) H Basophils (%) (Auto) 1.4 % (0.0-2.0) Erythrocyte Sedimentation Rate 30 MM/HR (0-20) H Prothrombin Time 10.7 SEC (9.30-11.50) Prothromb Time International Ratio 1.0 (0.9-1.1) Activated Partial Thromboplast Time 28 SEC (23-33) Sodium Level 142 MMOL/L (136-145) Potassium Level 4.4 MMOL/L (3.5-5.1) Chloride Level 106 MMOL/L (98-107) Carbon Dioxide Level 28 MMOL/L (21-32) Anion Gap 8 mmol/L (5-15) Blood Urea Nitrogen 18 mg/dL (7-18) Creatinine 1.2 MG/DL (0.55-1.30) Estimat Glomerular Filtration Rate > 60 mL/min (>60) Glucose Level 108 MG/DL (74-106) H Lactic Acid Level 1.20 mmol/L (0.4-2.0) Calcium Level 8.8 MG/DL (8.5-10.1) Total Bilirubin 0.3 MG/DL (0.2-1.0) Aspartate Amino Transf (AST/SGOT) 17 U/L (15-37) Alanine Aminotransferase (ALT/SGPT) 26 U/L (12-78) Alkaline Phosphatase 75 U/L (46-116) C-Reactive Protein, Quantitative 1.1 mg/dL (0.00-0.90) H Total Protein 7.4 G/DL (6.4-8.2) Albumin 3.4 G/DL (3.4-5.0) Globulin 4.0 g/dL Albumin/Globulin Ratio 0.9 (1.0-2.7) L Amylase Level 43 U/L (25-115) Lipase 198 U/L (73-393) Plan Problems: (1) Abdominal pain Assessment & Plan: 69-year-old male with abdominal discomfort. States worsening for some time now currently improved with medication. No nausea vomiting fever chills. Labs normal. States history of papillary disease and noted in prior imaging to have "mummified" gallbladder. Potential renal cancer. Prior imaging and history reviewed chart reviewed. Unfortunately very complex difficult case will require new imaging to evaluate the extent of problem. Currently he is stable comfortable without any significant complaints. There is concern for liver hepatobiliary disease that may be eminent or prominent given this history he explains. Thank you for letting participate in patient's care will follow with recommendations CT abdomen pelvis ordered Ultrasound abdomen ordered Labs ordered Thank you will follow with recommendations as above is available RUQ US with gallstones AND 4.8 CM X 5.6 CM LEFT LOWER POLE RENAL MASS LA [facility] CTAP W CONTRAST 12/28/19 5.8 CM PARTIALLY EXOPHYTIC HETEROGENEOUSLY ENHANCING SOFT TISSUE MASS AT THE INFERIOR POLE OF THE LEFT KIDNEY. 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 No gallbladder wall thickening nor pericholecystic fluid. Sonographic Delarosa's sign is negative. Common bile duct measures 5 mm in diameter. No intrahepatic biliary ductal dilatation. Liver demonstrates diffusely increased echogenicity, consistent with diffuse hepatocellular disease, most likely fatty change. It demonstrates a small cyst. Portal vein and hepatic veins are patent. Pancreas is unremarkable. Spleen is unremarkable. Left kidney measures 11.7 cm in length. Right kidney measures 12 cm length. Both kidneys demonstrate normal echogenicity. The left kidney demonstrates what appears to be a solid mass coming off of the lower pole, measures 4.8 cm x 5.6 cm diameter. No hydronephrosis. . Abdominal aorta is partially obscured by bowel gas, visualized portions are non-aneurysmal . Impression: 4.8 x 5.6 cm left lower pole renal mass. Possibly neoplastic. Further evaluation with contrast CT is recommended. This was discussed with patient's nurse at the time of interpretation Cholelithiasis. No biliary ductal dilatation Liver demonstrates diffusely increased echogenicity, consistent with diffuse hepatocellular disease, most likely fatty change. Small liver cyst Note incomplete visualization of the abdominal aorta (2) Renal mass (3) Acute embolism and thrombosis of femoral vein, bilateral (4) Acute embolism and thrombosis of popliteal vein, bilateral (5) Unspecified systolic (congestive) heart failure (6) Peripheral vascular disease, unspecified (7) Spinal stenosis, site unspecified (8) Malignant melanoma of skin, unspecified Krishna Cordon Jan 24, 2020 10:31
--- NOTE | 2020-01-24 11:14 | General Progress Note ---
Assessment/Plan Status: stable, unchanged Assessment/Plan: 69-year-old male with prior history of possible renal cancer and gallstones presenting with: # Abdominal pain RUQ US with gallstones AND 4.8 CM X 5.6 CM LEFT LOWER POLE RENAL MASS [facility] CTAP W CONTRAST 12/28/19 5.8 CM PARTIALLY EXOPHYTIC HETEROGENEOUSLY ENHANCING SOFT TISSUE MASS AT THE INFERIOR POLE OF THE LEFT KIDNEY. 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 Shultz from oncology consulted. Surgery consultation with Dr. Poole noted and repeat CTAP w contrast ordered LFT's and TB within normal limits Symptomatic treatment with tramadol # Reported history of renal cancer - Not operated at [facility] last month. Will request hospital records for details. Oncology and Urology consultation ( Dr. Raza ) requested. [facility] CTAP W CONTRAST 12/28/19 5.8 CM PARTIALLY EXOPHYTIC HETEROGENEOUSLY ENHANCING SOFT TISSUE MASS AT THE INFERIOR POLE OF THE LEFT KIDNEY. 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 Use only ASA for now bilateral lower extremity US ordered. # FULL CODE # disposition likely to return to SNF due to limitation with ADL's and lack of permanent home in [place]. Subjective Date patient seen: Jan 24, 2020 Time patient seen: 11:00 Allergies: Coded Allergies: SULFAMETHOXAZOLE (Verified Allergy, Unknown, 01/22/20) TRIMETHOPRIM (Verified Allergy, Unknown, 01/22/20) VANCOMYCIN (Verified Allergy, Unknown, 01/22/20) All Systems: reviewed and negative except above Subjective Feels well today. Abdominal discomfort is stable. Leg pain is at baseline. He was able to take a chair shower yesterday. Objective Last 24 Hour Vital Signs Date Time Temp Pulse Resp B/P (MAP) Pulse Ox O2 Delivery O2 Flow Rate FiO2 01/24/20 09:12 128/71 01/24/20 09:00 Room Air 01/24/20 08:00 96.7 66 20 128/71 (90) 100 01/24/20 08:00 52 01/24/20 04:00 58 01/24/20 04:00 97.0 58 20 115/66 (82) 96 01/24/20 00:00 97.0 72 18 117/67 (84) 96 01/24/20 00:00 72 01/23/20 21:00 Room Air 01/23/20 20:00 83 01/23/20 20:00 99.3 83 20 132/86 (101) 98 01/23/20 17:35 121/70 01/23/20 16:00 98.3 60 20 121/70 (87) 98 01/23/20 15:57 59 01/23/20 12:16 125/59 01/23/20 12:00 98.1 87 20 125/59 (81) 98 01/23/20 11:39 86 Intake and Output 01/23/20 01/24/20 19:00 07:00 Intake Total 650 ml Output Total 1200 ml Balance -1200 ml 650 ml Intake Oral 650 ml Output Urine Total 1200 ml # Voids 2 Laboratory Tests 01/24/20 05:00: White Blood Count 5.7, Red Blood Count 4.47L, Hemoglobin 14.8, Hematocrit 45.2, Mean Corpuscular Volume 101H, Mean Corpuscular Hemoglobin 33.0H, Mean Corpuscular Hemoglobin Concent 32.7, Red Cell Distribution Width 13.0, Platelet Count 159, Mean Platelet Volume 6.4L, Neutrophils (%) (Auto) 60.7, Lymphocytes ( %) (Auto) 25.1, Monocytes (%) (Auto) 9.6, Eosinophils (%) (Auto) 3.3H, Basophils (%) (Auto) 1.4, Erythrocyte Sedimentation Rate 30H, Prothrombin Time 10.7, Prothromb Time International Ratio 1.0, Activated Partial Thromboplast Time 28, Sodium Level 142, Potassium Level 4.4, Chloride Level 106, Carbon Dioxide Level 28, Anion Gap 8, Blood Urea Nitrogen 18, Creatinine 1.2, Estimat Glomerular Filtration Rate > 60, Glucose Level 108H, Lactic Acid Level 1.20, Calcium Level 8.8, Total Bilirubin 0.3, Aspartate Amino Transf (AST/SGOT) 17, Alanine Aminotransferase (ALT/SGPT) 26, Alkaline Phosphatase 75, C-Reactive Protein, Quantitative 1.1H, Total Protein 7.4, Albumin 3.4, Globulin 4.0, Albumin/Globulin Ratio 0.9L, Amylase Level 43, Lipase 198 Height (Feet): 5 Height (Inches): 7.00 Weight (Pounds): 350 General Appearance: WD/WN EENT: PERRL/EOMI Cardiovascular: normal rate Respiratory/Chest: lungs clear Abdomen: other - moderate tenderness in the RUQ and NO ROBERSON sign Extremities: normal range of motion Neurologic: receiver II-XII grossly normal Objective US ABDOMEN 01/22/20 4.8 X 5.6 CM LEFT LOWER POLE RENAL MASS. POSSIBLY NEOPLASTIC. CHOLELITHIASIS, NO CBD DILATATION. DIFFUSE ECHOGENICITY CONSISTENT WITH HEPATOCELLULAR DISEASE. SMALL LIVER CYST PRIOR DATA REVIEWED (PATIENT HAS ELECTRONIC COPIES OF THE REPORTS) [facility] CTAP W CONTRAST 12/28/19 5.8 CM PARTIALLY EXOPHYTIC HETEROGENEOUSLY ENHANCING SOFT TISSUE MASS AT THE INFERIOR POLE OF THE LEFT KIDNEY. 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
[2020-01-24 12:00] VITALS: BP 138/70
--- NOTE | 2020-01-24 13:21 | NUR ---
NURSE NOTES: Report received from Billie MEEKS. Patient transferred from 2E, AxOx4, not in distress, no complaints of pain at this time. PIV on right wrist patent and intact. Pt has been NPO since midnight for anticipated CT of Abdomen and pelvis, consents signed as per nurse. Reinforced NPO status and pt verbalized understanding. Belongings checked and intact. Pt is ambulatory with walker at bedside. Bed low and locked, siderails up x2, call light placed within reach and instructed to call nurse for assistance. Will continue to monitor.
[2020-01-24] MEDS ORDERED: Albuterol/Ipratropium 3ml neb HHN PRN (13:28)
[2020-01-24] MEDS ORDERED: traMADol 50mg tab ORAL PRN (13:30)
--- NOTE | 2020-01-24 14:25 | NUR ---
NURSE NOTES: Pt has order for transfer to med/surg. Pt transferred to room 401-1. Gave report to JEANNA Boyle. Pt stable, no sign of acute distress. Removed telemetry box from pt. Endorsed pt is currently NPO for CT scan of abdomen and pelvis. Belongings list checked with receiving nurse. Put bed in low position, side rails up x 2 and call light within reach. Endorsed plan of care.
--- NOTE | 2020-01-24 15:30 | NUR ---
NURSE NOTES: Pt transported to radiology for CT scan in stable condition.
[2020-01-24] MEDS ORDERED: Omnipaque-300 100ml vial INJ PRN (16:00)
--- NOTE | 2020-01-24 16:20 | NUR ---
NURSE NOTES: Patient returned from CT scan in stable condition.
[2020-01-24 16:30] VITALS: BP 120/77
--- NOTE | 2020-01-24 16:30 | Consultation ---
DATE OF CONSULTATION: 01/24/2020 CONSULTING PHYSICIAN: Souleymane Raza M.D. REFERRING PHYSICIAN: Benita Braxton M.D. REASON FOR CONSULTATION: Evaluation of renal mass. HISTORY OF PRESENT ILLNESS: This is a 69-year-old morbidly obese male who has a history of abdominal pain. He was admitted for further evaluation. Apparently, he has a history of a renal mass, for which he was evaluated at [facility] a number of months ago and apparently at that time decision was made to treat conservatively at a hospice. The patient has multiple other comorbid issues including morbid obesity, history of PE, DVT. At this time, the patient is considering having removal of the renal mass. He also has a history of hematuria in the past and apparently that is the way the kidney tumor was initially diagnosed. He has a history of BPH, some urinary frequency. He has vague abdominal discomfort. PAST MEDICAL HISTORY: Significant for above. He also has a history of morbid obesity, history of DVT, PE. PAST SURGICAL HISTORY: Unknown. MEDICATIONS: The current medication list in the hospital was reviewed. He is on Lasix, K-Dur, Protonix, Trental, aspirin, Dulcolax, Ultram, Tylenol, albuterol. ALLERGIES: Sulfamethoxazole, trimethoprim, . SOCIAL HISTORY: The patient apparently is in a [facility] facility. REVIEW OF SYSTEMS: As above. FAMILY HISTORY: Noncontributory. PHYSICAL EXAMINATION: GENERAL: Obese male. VITAL SIGNS: His temperature is 96.7, blood pressure is 120/71, pulse is 66, respirations are 20. HEENT: Normocephalic. NECK: Supple. ABDOMEN: Soft. No CVA tenderness. EXTREMITIES: No clubbing or cyanosis. LABORATORY DATA: His admit UA was negative. White count is 5.7, hemoglobin 14.8, platelets 159. BUN is 18, creatinine 1.2. INR is 1.0. DIAGNOSTIC/IMAGING STUDIES: The patient had an abdominal ultrasound here at [place]. There was mention of a 4.8 x 5.6 cm left lower pole renal mass. Apparently, the patient has had an outside CT scan, which showed about an 8 cm mass of the left lower pole. IMPRESSION: 1. Solid left renal mass, most consistent with renal cell carcinoma. 2. Abdominal pain history. 3. Hematuria history. 4. BPH history. 5. Mild lower urinary tract symptoms. PLAN AND DISCUSSION: Again, the patient does have a solid mass of the left kidney, which is most consistent with renal cell carcinoma. The next step in management would be a metastatic workup and ultimately, if the patient is medically stable, he may benefit from having a nephrectomy removal of the mass at some point. However, the patient does have multiple comorbid issues and he is morbidly obese, over 350 pounds, and obviously surgery would be very complicated and may need to be ultimately done at a tertiary center. I will review his other records and discuss with Oncology and go from there. I will also add Flomax empirically. Thank you, Dr. Braxton, for asking me to see this patient in consultation. Souleymane Raza M.D. DR: MOLLY JOB#: [id number] CC:
--- NOTE | 2020-01-24 17:16 | Diagnostic Imaging Report ---
CT ABDOMEN + PELVIS With Contrast HISTORY: Abdominal pain TECHNIQUE: One or more of the following dose reduction techniques were used: automated exposure control, adjustment of the mA and/or kV according to patient size, use of iterative reconstruction technique. Axial CT images of the abdomen and pelvis obtained with intravenous contrast with coronal and sagittal reconstructions. One or more of the following dose reduction techniques were used: automated exposure control, adjustment of the mA and/or kV according to patient size, use of iterative reconstruction technique. Total Exam volume computed tomography dose index (CTDIvol) = 34.4 mGy and Dose Length Product (DLP) = 1863.3mGY-c. COMPARISON: Abdomen ultrasound January 22, 2020 FINDINGS: Prominent pericardial fat. Normal heart size. No acute consolidation or effusion or pneumothorax. Fatty changes of the liver with no acute abnormality. Small left hepatic lobe cyst. Gallstones visible in the gallbladder without biliary dilatation. Pancreas demonstrates no mass or inflammation. Spleen is unremarkable. Perinephric stranding of the kidneys. There is an enhancing heterogeneous mass arising from the left kidney measuring 6.1 x 5 cm. No hydronephrosis or nephrolithiasis appreciated. Dense aorta atherosclerosis without aneurysm. Diverticular disease of the colon without acute diverticulitis. Underdistended urinary bladder with mildly prominent and heterogeneous prostate gland. Small mesenteric and pelvic lymph nodes containing mesenteric fat. Diffuse degenerative changes of the hips and spine and sacroiliac joints with severe degeneration of the left hip. No acute fractures. IMPRESSION: Gallstones visible in the gallbladder without biliary dilatation. Diffuse fatty changes of the liver. Diverticular disease without diverticulitis. Soft tissue enhancing mass in lower pole of the left kidney worrisome for neoplastic process such as renal cell carcinoma. Severe degeneration of the left hip.
--- NOTE | 2020-01-24 19:27 | NUR ---
NURSE HAND-OFF: Important Events on Shift: Transferred from [facility]; S/P CT of ab/pelvis showed mass in left kidney Patient Status: Stable Diet: Regular Pending Orders: None Pending Results/Labs: None Pending MD notification: None Latest Vital Signs: Temperature 97.5 , Pulse 75 , B/P 120 /77 , Respiratory Rate 18 , O2 SAT 98 , Room Air, O2 Flow Rate . Vital Sign Comment: Latest Wadsworth Fall Score: 60 Fall Risk: High Risk Safety Measures: Call light Within Reach, Bed Alarm Zone 1, Side Rails Side Rails x2, Bed position Low and Locked. Fall Precautions: Yellow Socks Yellow Gown Door Sign Patient Fall Education Report given to Gina DUBON.
--- NOTE | 2020-01-24 19:30 | NUR ---
NURSE NOTES: RECEIVED PATIENT LYING IN BED,AWAKE,ALERT/ORIENTED X4, PLEASANT/TALKATIVE, DENIES PAIN. NO SIGNS AND SYMPTOMS OF ACUTE CARDIO RESPIRATORY DISTRESS/SHORTNESS OF BREATH, DENIES CHEST PAIN. ABDOMEN OBESE/NON TENDER/AUDIBLE BOWEL SOUNDS, DENIES N/V/D. S/P CT ABDOMEN/PELVIS, NO ILL EFFECTS NOTED. SIDE RAILS UP X2,BED IN LOWEST POSITION FOR SAFETY, SIDE RAILS UP X2, ASSISTIVE DEVICE, FWW, AT BEDSIDE, ENCOURAGED PATIENT TO UTILIZE CALL LIGHT FOR ASSISTANCE, VERBALIZED UNDERSTANDING. EDUCATED PATIENT ON PLAN OF CARE. NAD.
[2020-01-24 20:00] VITALS: BP 124/73
[2020-01-24] MEDS: Tamsulosin 0.4mg cap ORAL SCH (20:05)
[2020-01-24] MEDS ORDERED: Tamsulosin 0.4mg cap ORAL SCH (21:00)
[2020-01-25] VITALS (7 sets, daily range): BP systolic 97–139; BP diastolic 60–83
--- NOTE | 2020-01-25 06:14 | NUR ---
NURSE NOTES: RESTED WELL, NO SIGNIFICANT CHANGE OF CONDITION NOTED THROUGHOUT THE NIGHT. SAFETY MAINTAINED. NAD.
--- NOTE | 2020-01-25 07:11 | NUR ---
NURSE HAND-OFF: Important Events on Shift:[RESTED WELL, UNEVENTFUL NIGHT] Patient Status: [STABLE] Diet: [REGULAR] Pending Orders: [N/A] Pending Results/Labs:[N/A] Pending MD notification:[] Latest Vital Signs: Temperature 97.9 , Pulse 69 , B/P 118 /69 , Respiratory Rate 18 , O2 SAT 95 , Room Air, O2 Flow Rate . Vital Sign Comment: [STABLE, AFEBRILE] Latest Wadsworth Fall Score: 60 Fall Risk: High Risk Safety Measures: Call light Within Reach, Bed Alarm Zone 1, Side Rails Side Rails x2, Bed position Low and Locked. Fall Precautions: Yellow Socks Yellow Gown Door Sign Patient Fall Education Report given to [JEANNA MARINELLI].
--- NOTE | 2020-01-25 07:50 | Consultation ---
History of Present Illness General Chief Complaint: Abdominal Pain Present Illness Allergies: Coded Allergies: SULFAMETHOXAZOLE (Verified Allergy, Unknown, 01/22/20) TRIMETHOPRIM (Verified Allergy, Unknown, 01/22/20) VANCOMYCIN (Verified Allergy, Unknown, 01/22/20) Medication History Scheduled Aspirin Ec* (Aspirin Ec*), 81 MG ORAL DAILY, (Reported) Bisacodyl* (Dulcolax*), 10 MG ORAL DAILY, (Reported) Furosemide* (Lasix*), 20 MG ORAL DAILY, (Reported) Magnesium Hydroxide* (Milk Of Magnesia*), 30 ML ORAL DAILY, (Reported) Pantoprazole* (Protonix*), 20 MG ORAL DAILY, (Reported) Pentoxifylline* (Trental*), 400 MG ORAL THREE TIMES A DAY, (Reported) Potassium Chloride (Potassium Chloride), 20 MEQ ORAL DAILY, (Reported) Scheduled PRN Tramadol Hcl* (Ultram*), 50 MG ORAL Q6H PRN for For Pain, (Reported) Miscellaneous Medications Ipratropium/Albuterol Sulfate (Combivent Respimat Inhal Lohman), 4 GM IH, ( Reported) Patient History Healthcare decision maker Resuscitation status Advanced Directive on File Physical Exam Last 24 Hour Vital Signs Date Time Temp Pulse Resp B/P (MAP) Pulse Ox O2 Delivery O2 Flow Rate FiO2 01/25/20 04:00 97.9 69 18 118/69 (85) 95 01/25/20 00:00 97.1 83 18 97/60 (72) 97 01/24/20 21:04 Room Air 01/24/20 20:00 96.9 88 18 124/73 (90) 98 01/24/20 17:48 120/77 01/24/20 16:30 97.5 75 18 120/77 (91) 98 75 01/24/20 12:00 58 01/24/20 12:00 96.8 63 19 138/70 (92) 99 01/24/20 09:12 128/71 01/24/20 09:00 Room Air 01/24/20 08:00 96.7 66 20 128/71 (90) 100 01/24/20 08:00 52 Intake and Output 01/24/20 01/25/20 19:00 07:00 Intake Total 240 ml 840 ml Output Total 200 ml 1050 ml Balance 40 ml -210 ml Intake Oral 240 ml 840 ml Output Urine Total 200 ml 1050 ml # Voids 1 4 Height (Feet): 5 Height (Inches): 7.00 Weight (Pounds): 350 Medications Current Medications Medications (Trade) Dose Ordered Sig/Gloria Route PRN Reason Start Time Stop Time Status Last Admin Dose Admin Acetaminophen (Tylenol) 650 mg Q6H PRN ORAL fever T>100.3 and mild pain 01/24/20 13:27 02/21/20 13:26 Albuterol/ Ipratropium (Albuterol/ Ipratropium) 3 ml Q6H PRN HHN Shortness of Breath 01/24/20 13:28 01/27/20 13:27 Aspirin (ASA) 81 mg BID ORAL 01/24/20 18:00 03/07/20 19:59 01/24/20 17:30 Barium Sulfate (Readi-Cat 2) 450 ml NOW PRN ORAL Radiology Procedure 01/24/20 16:00 01/25/20 12:36 Bisacodyl (Dulcolax) 10 mg DAILYPRN PRN RECTAL Constipation 01/24/20 19:00 04/21/20 18:59 Furosemide (Lasix) 20 mg DAILY ORAL 01/25/20 09:00 02/22/20 08:59 Iohexol (OMNIPAQUE-300 100ml) 100 ml NOW PRN INJ Radiology Procedure 01/24/20 16:00 01/25/20 12:36 Pantoprazole (Protonix) 40 mg DAILY ORAL 01/25/20 09:00 02/22/20 08:59 Pentoxifylline (TRENtal) 400 mg TID ORAL 01/24/20 18:00 04/21/20 20:59 01/24/20 17:48 Potassium Chloride (K-Dur) 20 meq DAILY ORAL 01/25/20 09:00 04/22/20 08:59 Tamsulosin HCl (Flomax) 0.4 mg BEDTIME ORAL 01/24/20 21:00 02/23/20 20:59 Tramadol HCl (Ultram) 50 mg Q12H PRN ORAL Severe Pain (Pain Scale 7-10) 01/24/20 13:30 01/29/20 13:29 Assessment/Plan Assessment/Plan: Oncology Consultation RELuli MD: Benita Braxton RFC: Eval of renal cell ca Reason for Hospitalization: Abdominal Pain HPI 69-year-old male sent in from [facility] in [place] for increased abdominal pain. Prior history of cancer reported renal cancer as well as systolic CHF which is compensated, prior PE and DVT with intolerance to anticoagulation due to reported hemorrhage in the renal parenchyma, Left renal cancer of uncertain etiology and non intervened on due to unclear reasons. Patient had recent CT imaging which showed increased biliary duct dilation and porcelain "mummified" gallbladder. He denied any increased shortness of breath or increased leg swelling at this time and has baseline venous stasis and lower extremity edema with chronic skin changes. He has been able to ambulate with a walker. He reports urinating. Denies any fever. Patient reports having some right upper abdominal pain and nausea. Admission is needed for surgical consultation and assessment. Has been seen by Urology Dr. Raza and recs noted. Allergies: SULFAMETHOXAZOLE (Verified Allergy, Unknown, 01/22/20) TRIMETHOPRIM (Verified Allergy, Unknown, 01/22/20) VANCOMYCIN (Verified Allergy, Unknown, 01/22/20) COVID-19 Screening Contact w/high risk pt: No Recent Travel to affected area: No Experienced COVID-19 symptoms?: No Scheduled Aspirin Ec* (Aspirin Ec*), 81 MG ORAL DAILY, (Reported) Bisacodyl* (Dulcolax*), 10 MG ORAL DAILY, (Reported) Furosemide* (Lasix*), 20 MG ORAL DAILY, (Reported) Magnesium Hydroxide* (Milk Of Magnesia*), 30 ML ORAL DAILY, (Reported) Pantoprazole* (Protonix*), 20 MG ORAL DAILY, (Reported) Pentoxifylline* (Trental*), 400 MG ORAL THREE TIMES A DAY, (Reported) Potassium Chloride (Potassium Chloride), 20 MEQ ORAL DAILY, (Reported) Scheduled PRN Tramadol Hcl* (Ultram*), 50 MG ORAL Q6H PRN for For Pain, (Reported) Miscellaneous Medications Ipratropium/Albuterol Sulfate (Combivent Respimat Inhal Lohman), 4 GM IH, ( Reported) Patient History Healthcare decision maker Resuscitation status Advanced Directive on File Review of Systems Constitutional: Reports: see HPI All Other Systems: negative except mentioned in HPI Physical Exam General Appearance: WD/WN, moderate distress Lines, tubes and drains: peripheral HEENT: normocephalic, atraumatic Respiratory/Chest: lungs clear Cardiovascular/Chest: normal rate Abdomen: soft, other - obese with some RUQ discomfort. negative Delarosa sign Extremities: slow capillary refill, moderate edema Skin Exam: other - HYPERPIGMENTATION IN THE LOWER EXTREMITIES WITH CHRONIC SKIN CHANGES Neurologic: valve pipe irrigator II-XII grossly normal Musculoskeletal: normal muscle bulk Labs noted Imaging: reviewed Assessment and Recs # RENAL CANCER likely -- p/w RUQ US with gallstones AND 4.8 CM X 5.6 CM LEFT LOWER POLE RENAL MASS [facility] CTAP W CONTRAST 12/28/19 5.8 CM PARTIALLY EXOPHYTIC HETEROGENEOUSLY ENHANCING SOFT TISSUE MASS AT THE INFERIOR POLE OF THE LEFT KIDNEY. 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 --> Use only ASA for now --> bilateral lower extremity US ordered. does show chronic right leg dvt --> consider lovenox if after surgery # Abdominal pain --> RUQ US with gallstones. Reportedly no CBD dilatation ( report pending as computer system with problems today) ==> per surg # PVD ==> COntinue Pentoxyphilline and asa # History of systolic CHF --> COntinue Lasix and KCl replacement # FULL CODE # Disposition likely to return to SNF Appreciate consultation and dw Mitchell Carlin MD Jan 25, 2020 07:50
--- NOTE | 2020-01-25 08:07 | NUR ---
NURSE NOTES: received patient sitting at the bed, feet dangling. In room air, no complaint of pain or discomfort. IV access onthe left antecubital, saline locked. Urinal and front wheel walker close to patient. Bed locked at the lowest position possible, call light within easy reach, siderails up x2. Will continue to monitor patient and follow up with the plan of care.
[2020-01-25] MEDS: Aspirin Baby 81mg ORAL SCH ×2 (08:31→18:07)
--- NOTE | 2020-01-25 08:58 | Urology Progress Note ---
Assessment/Plan Status: stable, unchanged Assessment/Plan: 1. Solid left renal mass, most consistent with renal cell carcinoma. 2. Abdominal pain history. 3. Hematuria history. 4. BPH history. 5. Mild lower urinary tract symptoms. monitor clinically med/onc w/u considering nephrectomy at some point flomax added d/w primary service and onc Subjective Allergies: Coded Allergies: SULFAMETHOXAZOLE (Verified Allergy, Unknown, 01/22/20) TRIMETHOPRIM (Verified Allergy, Unknown, 01/22/20) VANCOMYCIN (Verified Allergy, Unknown, 01/22/20) Subjective all noted, feels fair Objective Last 24 Hour Vital Signs Date Time Temp Pulse Resp B/P (MAP) Pulse Ox O2 Delivery O2 Flow Rate FiO2 01/25/20 08:30 128/77 01/25/20 08:00 97.7 79 19 128/77 (94) 95 01/25/20 04:00 97.9 69 18 118/69 (85) 95 01/25/20 00:00 97.1 83 18 97/60 (72) 97 01/24/20 21:04 Room Air 01/24/20 20:00 96.9 88 18 124/73 (90) 98 01/24/20 17:48 120/77 01/24/20 16:30 97.5 75 18 120/77 (91) 98 75 01/24/20 12:00 58 01/24/20 12:00 96.8 63 19 138/70 (92) 99 01/24/20 09:12 128/71 01/24/20 09:00 Room Air Intake and Output 01/24/20 01/25/20 19:00 07:00 Intake Total 240 ml 840 ml Output Total 200 ml 1050 ml Balance 40 ml -210 ml Intake Oral 240 ml 840 ml Output Urine Total 200 ml 1050 ml # Voids 1 4 Microbiology Date/Time Source Procedure Growth Status 01/22/20 21:20 Rectum - Final NO CARBAPENEM-RESISTANT ENTEROBACTERI... Complete Current Medications Medications (Trade) Dose Ordered Sig/Gloria Route PRN Reason Start Time Stop Time Status Last Admin Dose Admin Acetaminophen (Tylenol) 650 mg Q6H PRN ORAL fever T>100.3 and mild pain 01/24/20 13:27 02/21/20 13:26 Albuterol/ Ipratropium (Albuterol/ Ipratropium) 3 ml Q6H PRN HHN Shortness of Breath 01/24/20 13:28 01/27/20 13:27 Aspirin (ASA) 81 mg BID ORAL 01/24/20 18:00 03/07/20 19:59 01/25/20 08:31 Barium Sulfate (Readi-Cat 2) 450 ml NOW PRN ORAL Radiology Procedure 01/24/20 16:00 01/25/20 12:36 Bisacodyl (Dulcolax) 10 mg DAILYPRN PRN RECTAL Constipation 01/24/20 19:00 04/21/20 18:59 Furosemide (Lasix) 20 mg DAILY ORAL 01/25/20 09:00 02/22/20 08:59 01/25/20 08:30 Iohexol (OMNIPAQUE-300 100ml) 100 ml NOW PRN INJ Radiology Procedure 01/24/20 16:00 01/25/20 12:36 Pantoprazole (Protonix) 40 mg DAILY ORAL 01/25/20 09:00 02/22/20 08:59 01/25/20 08:30 Pentoxifylline (TRENtal) 400 mg TID ORAL 01/24/20 18:00 04/21/20 20:59 01/25/20 08:30 Potassium Chloride (K-Dur) 20 meq DAILY ORAL 01/25/20 09:00 04/22/20 08:59 01/25/20 08:30 Tamsulosin HCl (Flomax) 0.4 mg BEDTIME ORAL 01/24/20 21:00 02/23/20 20:59 Tramadol HCl (Ultram) 50 mg Q12H PRN ORAL Severe Pain (Pain Scale 7-10) 01/24/20 13:30 01/29/20 13:29 Height (Feet): 5 Height (Inches): 7.00 Weight (Pounds): 350 Objective exam stable venous duplex and CT A/P noted Souleymane Raza MD Jan 25, 2020 08:58
--- NOTE | 2020-01-25 10:23 | General Progress Note ---
Assessment/Plan Status: stable, unchanged Assessment/Plan: 69-year-old male with prior history of possible renal cancer and gallstones presenting with: # Abdominal pain RUQ US with gallstones AND 4.8 CM X 5.6 CM LEFT LOWER POLE RENAL MASS CT AP 01/24/20 Left lower renal pole mass now 6.1 cm in diameter. [facility] CTAP W CONTRAST 12/28/19 5.8 CM PARTIALLY EXOPHYTIC HETEROGENEOUSLY ENHANCING SOFT TISSUE MASS AT THE INFERIOR POLE OF THE LEFT KIDNEY. 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 Shultz from oncology consulted. Surgery consultation with Dr. Poole Urology consultation with Dr. Raza AWAIT INPUT regarding surgical options LFT's and TB within normal limits Symptomatic treatment with tramadol # Reported history of renal cancer - Not operated at [facility] last month. Will request hospital records for details. Oncology and Urology consultation ( Dr. Raza ) requested. CTAP [facility] 01/24/20 NOW INCREASED TO 6.1 cm L renal mass [facility] CTAP W CONTRAST 12/28/19 5.8 CM PARTIALLY EXOPHYTIC HETEROGENEOUSLY ENHANCING SOFT TISSUE MASS AT THE INFERIOR POLE OF THE LEFT KIDNEY. 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 Use only ASA for now bilateral lower extremity US with chronic DVT # FULL CODE # disposition likely to return to SNF due to limitation with ADL's and lack of permanent home in [place]. Subjective Date patient seen: Jan 25, 2020 Time patient seen: 09:30 ROS Limited/Unobtainable: No Respiratory: Reports: SOB with excertion Gastrointestinal/Abdominal: Reports: abdomen distended, abdominal pain Allergies: Coded Allergies: SULFAMETHOXAZOLE (Verified Allergy, Unknown, 01/22/20) TRIMETHOPRIM (Verified Allergy, Unknown, 01/22/20) VANCOMYCIN (Verified Allergy, Unknown, 01/22/20) Subjective Feels well today. Abdominal discomfort is stable. Leg pain is at baseline. Seen by surgery, urology and oncology Objective Last 24 Hour Vital Signs Date Time Temp Pulse Resp B/P (MAP) Pulse Ox O2 Delivery O2 Flow Rate FiO2 01/25/20 08:30 128/77 01/25/20 08:00 97.7 79 19 128/77 (94) 95 01/25/20 04:00 97.9 69 18 118/69 (85) 95 01/25/20 00:00 97.1 83 18 97/60 (72) 97 01/24/20 21:04 Room Air 01/24/20 20:00 96.9 88 18 124/73 (90) 98 01/24/20 17:48 120/77 01/24/20 16:30 97.5 75 18 120/77 (91) 98 75 01/24/20 12:00 58 01/24/20 12:00 96.8 63 19 138/70 (92) 99 Intake and Output 01/24/20 01/25/20 19:00 07:00 Intake Total 240 ml 840 ml Output Total 200 ml 1050 ml Balance 40 ml -210 ml Intake Oral 240 ml 840 ml Output Urine Total 200 ml 1050 ml # Voids 1 4 Height (Feet): 5 Height (Inches): 7.00 Weight (Pounds): 350 General Appearance: WD/WN EENT: PERRL/EOMI Neck: non-tender Cardiovascular: normal rate Respiratory/Chest: lungs clear Abdomen: soft, other - RUQ tenderness, negative ROBERSON Extremities: normal range of motion Edema: 2+ Leg (L), 2+ Leg (R) Neurologic: chalker soles II-XII grossly normal Objective US ABDOMEN 01/22/20 4.8 X 5.6 CM LEFT LOWER POLE RENAL MASS. POSSIBLY NEOPLASTIC. CHOLELITHIASIS, NO CBD DILATATION. DIFFUSE ECHOGENICITY CONSISTENT WITH HEPATOCELLULAR DISEASE. SMALL LIVER CYST PRIOR DATA REVIEWED (PATIENT HAS ELECTRONIC COPIES OF THE REPORTS) [facility] CT[facility] W CONTRAST 12/28/19 5.8 CM PARTIALLY EXOPHYTIC HETEROGENEOUSLY ENHANCING SOFT TISSUE MASS AT THE INFERIOR POLE OF THE LEFT KIDNEY. MOST CONSISTENT WITH RENAL CELL CARCINOMA, NO RENAL VEIN INVASION HEPATIC STEATOSIS CHOLELITHIASIS COLONIC DIVERTICULOSIS WITHOUT DIVERTICULITIS SEVERE LEFT HIP OSTEOARTHRITIS CT K[facility] 07/27/19 5.7 CM FLUID ATTENUATING LESION LEFT KIDNEY LOWER POLE Benita Braxton MD Jan 25, 2020 10:23
[2020-01-25] MEDS ORDERED: Miralax 17gm pkt ORAL PRN (10:45)
[2020-01-25] MEDS: Docusate 100mg cap ORAL SCH ×2 (11:35→18:07)
--- NOTE | 2020-01-25 11:59 | Diagnostic Imaging Report ---
EXAM: CT Chest With Intravenous Contrast CLINICAL HISTORY: ABD PAIN TECHNIQUE: Axial computed tomography images of the chest with intravenous contrast. CTDI is 185 mGy and DLP is 1204.7 mGy-cm. One or more of the following dose reduction techniques were used: automated exposure control, adjustment of the mA and/or kV according to patient size, use of iterative reconstruction technique. COMPARISON: None FINDINGS: Lungs: Punctate calcified granuloma in the lingula. Pleural space: Unremarkable. No pneumothorax. No significant effusion. Heart: Unremarkable. No cardiomegaly. No significant pericardial effusion. Mediastinum: Small hiatal hernia. Thyroid: Hypodense nodule in the right thyroid lobe could be further evaluated with nonemergent dedicated ultrasound if clinically indicated. Bones/joints: Unremarkable. No acute fracture. No dislocation. Soft tissues: Bilateral gynecomastia. Vasculature: Unremarkable. No thoracic aortic aneurysm. Lymph nodes: Calcified mediastinal lymph nodes. Liver: Small hepatic cysts. Gallbladder and bile ducts: Cholelithiasis. Stomach and bowel: Diverticulosis. IMPRESSION: No acute abnormality in the chest. Cholelithiasis.
--- NOTE | 2020-01-25 19:34 | NUR ---
NURSE HAND-OFF: Important Events on Shift:[] Patient Status: [stable] Diet: [regular] Pending Orders: [] Pending Results/Labs:[] Pending MD notification:[] Latest Vital Signs: Temperature 97.3 , Pulse 67 , B/P 127 /61 , Respiratory Rate 18 , O2 SAT 97 , Room Air, O2 Flow Rate . Vital Sign Comment: [] Latest Wadsworth Fall Score: 60 Fall Risk: High Risk Safety Measures: Call light Within Reach, Bed Alarm Zone 1, Side Rails Side Rails x2, Bed position Low and Locked. Fall Precautions: Yellow Socks Yellow Gown Door Sign Patient Fall Education Report given to [Gail Babin].
--- NOTE | 2020-01-25 19:36 | NUR ---
NURSE NOTES: Received report from JEANNA Lopez. Pt resting in bed, AAO x 4, on room air. Will contact RT for CPAP. Pt no c/o pain or discomfort. Encouraged to use call light. Walker at bedside. IV site intact. Bed locked, lowest position, alarm on, call light within reach. Will continue to monitor.
[2020-01-25] MEDS: Tamsulosin 0.4mg cap ORAL SCH (20:04)
--- NOTE | 2020-01-25 22:15 | NUR ---
NURSE NOTES: Left message Dr. Braxton to verify correct CPAP setting. RT said the setting is like BIPAP and needs correct setting. Addendum: 01/26/20 at 0110 by RUSTY OLIVEIRA RN RN NURSE NOTE: Per Dr. Braxton, ok to change. RT tried CPAP setting and Pt said feels comfortable 8 to 11 so CPAP set up 11.
[2020-01-26] VITALS (7 sets, daily range): BP systolic 101–133; BP diastolic 53–88
--- NOTE | 2020-01-26 06:22 | NUR ---
NURSE HAND-OFF: Important Events on Shift:N/A Patient Status: stable Diet: reg Pending Orders: chest X on 01/25 Pending Results/Labs:N Pending MD notification:N Latest Vital Signs: Temperature 97.8 , Pulse 58 , B/P 125 /75 , Respiratory Rate 20 , O2 SAT 98 , Room Air, O2 Flow Rate . Vital Sign Comment: Latest Wadsworth Fall Score: 60 Fall Risk: High Risk Safety Measures: Call light Within Reach, Bed Alarm Zone 1, Side Rails Side Rails x2, Bed position Low and Locked. Fall Precautions: Yellow Socks Yellow Gown Door Sign Patient Fall Education Addendum: 01/26/20 at 0712 by RUSTY OLIVEIRA RN RN HAND-OFF: Report given to Jessica.
--- NOTE | 2020-01-26 08:00 | NUR ---
ISAAC NOTES: received patient lying in bed, asleep, in room air, no distress noted. Left antecubital IV access, saline locked. Urinal and front wheel walker by patient bedside. Bed locked at the lowest position possible, call light within easy reach, siderails up x2. Will continue to monitor patient and follow up with the plan of care.
--- NOTE | 2020-01-26 08:20 | Hematology/Onc Progress Note ---
Assessment/Plan Assessment/Plan Assessment and Recs # RENAL CANCER likely -- p/w RUQ US with gallstones AND 4.8 CM X 5.6 CM LEFT LOWER POLE RENAL MASS [facility] CTAP W CONTRAST 12/28/19 5.8 CM PARTIALLY EXOPHYTIC HETEROGENEOUSLY ENHANCING SOFT TISSUE MASS AT THE INFERIOR POLE OF THE LEFT KIDNEY. MOST CONSISTENT WITH RENAL CELL CARCINOMA, NO RENAL VEIN INVASION HEPATIC STEATOSIS CHOLELITHIASIS COLONIC DIVERTICULOSIS WITHOUT DIVERTICULITIS SEVERE LEFT HIP OSTEOARTHRITIS --> have discussed with surg, and urology --> recommend potential nephrectomy if can tolerate (issue with obesity and comorbids) --> tumor markers holding off except Ldh --> ct chest with con ordered-->results shows no evidence of disease --> outpatient followup, may need immunotherapy after surgery is done # Pancytopenia --> initally with low wbc and with low plt --> now is back to normal --> may be due to malignancy # 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 --> Use only ASA for now --> bilateral lower extremity US ordered. does show chronic right leg dvt --> consider lovenox if after surgery # Abdominal pain --> RUQ US with gallstones. Reportedly no CBD dilatation ( report pending as computer system with problems today) ==> per surg # PVD ==> COntinue Pentoxyphilline and asa # History of systolic CHF --> COntinue Lasix and KCl replacement # FULL CODE # Disposition likely to return to SNF Appreciate consultation and dw RN Subjective Constitutional: Denies: no symptoms, chills, fever, malaise, weakness, other HEENT: Denies: no symptoms, eye pain, blurred vision, tearing, double vision, ear pain, ear discharge, nose pain, nose congestion, throat pain, throat swelling, mouth pain, mouth swelling, other Cardiovascular: Denies: no symptoms, chest pain, edema, irregular heart rate, lightheadedness, palpitations, syncope, other Respiratory: Denies: no symptoms, cough, shortness of breath, SOB with excertion, SOB at rest, sputum, wheezing, other Gastrointestinal/Abdominal: Denies: no symptoms, abdomen distended, abdominal pain, black stools, tarry stools, blood in stool, constipated, diarrhea, difficulty swallowing, nausea, poor appetite, poor fluid intake, rectal bleeding , vomiting, other Genitourinary: Denies: no symptoms, burning, discharge, frequency, flank pain, hematuria, incontinence, pain, urgency, other Neurologic/Psychiatric: Denies: no symptoms, anxiety, depressed, emotional problems, headache, numbness, paresthesia, pre-existing deficit, seizure, tingling, tremors, weakness, other Endocrine: Denies: no symptoms, excessive sweating, flushing, intolerance to cold, intolerance to heat, increased hunger, increased thirst, increased urine, unexplained weight gain, unexplained weight loss, other Allergies: Coded Allergies: SULFAMETHOXAZOLE (Verified Allergy, Unknown, 01/22/20) TRIMETHOPRIM (Verified Allergy, Unknown, 01/22/20) VANCOMYCIN (Verified Allergy, Unknown, 01/22/20) Subjective 01/25 on cpap overnight, no bleeding, labs reviewed, have dw him re outpatient plan again Objective Objective Current Medications Medications (Trade) Dose Ordered Sig/Gloria Route PRN Reason Start Time Stop Time Status Last Admin Dose Admin Acetaminophen (Tylenol) 650 mg Q6H PRN ORAL fever T>100.3 and mild pain 01/24/20 13:27 02/21/20 13:26 Albuterol/ Ipratropium (Albuterol/ Ipratropium) 3 ml Q6H PRN HHN Shortness of Breath 01/24/20 13:28 01/27/20 13:27 Aspirin (ASA) 81 mg BID ORAL 01/24/20 18:00 03/07/20 19:59 01/25/20 18:07 Bisacodyl (Dulcolax) 10 mg DAILYPRN PRN RECTAL Constipation 01/24/20 19:00 04/21/20 18:59 Docusate Sodium (Colace) 100 mg TWICE A DAY ORAL 01/25/20 10:45 02/24/20 10:44 01/25/20 18:07 Furosemide (Lasix) 20 mg DAILY ORAL 01/25/20 09:00 02/22/20 08:59 01/25/20 08:30 Pantoprazole (Protonix) 40 mg DAILY ORAL 01/25/20 09:00 02/22/20 08:59 01/25/20 08:30 Pentoxifylline (TRENtal) 400 mg TID ORAL 01/24/20 18:00 12/2/20 20:59 01/25/20 18:07 Polyethylene Glycol (Miralax) 17 gm DAILY PRN ORAL Constipation 01/25/20 10:45 02/24/20 10:44 Potassium Chloride (K-Dur) 20 meq DAILY ORAL 01/25/20 09:00 04/22/20 08:59 01/25/20 08:30 Tamsulosin HCl (Flomax) 0.4 mg BEDTIME ORAL 01/24/20 21:00 02/23/20 20:59 Tramadol HCl (Ultram) 50 mg Q12H PRN ORAL Severe Pain (Pain Scale 7-10) 01/24/20 13:30 01/29/20 13:29 Last 24 Hour Vital Signs Date Time Temp Pulse Resp B/P (MAP) Pulse Ox O2 Delivery O2 Flow Rate FiO2 01/26/20 04:00 97.8 58 20 125/75 (92) 98 01/26/20 03:11 78 15 99 30 01/26/20 01:00 71 14 98 30 01/26/20 00:00 98.2 69 20 125/73 (90) 97 01/25/20 20:42 Room Air 01/25/20 20:00 97.9 84 18 139/83 (101) 93 01/25/20 18:07 127/61 01/25/20 16:00 97.3 67 18 127/61 (83) 97 01/25/20 13:46 125/76 01/25/20 12:00 97.2 69 19 125/76 (92) 97 01/25/20 09:00 Room Air 01/25/20 08:30 128/77 01/25/20 08:00 97.7 79 19 128/77 (94) 95 01/25/20 04:00 97.9 69 18 118/69 (85) 95 01/25/20 00:00 97.1 83 18 97/60 (72) 97 01/24/20 21:04 Room Air 01/24/20 20:00 96.9 88 18 124/73 (90) 98 01/24/20 17:48 120/77 01/24/20 16:30 97.5 75 18 120/77 (91) 98 75 01/24/20 12:00 58 01/24/20 12:00 96.8 63 19 138/70 (92) 99 01/24/20 09:12 128/71 01/24/20 09:00 Room Air Intake and Output 01/25/20 01/26/20 19:00 07:00 Intake Total 1200 ml Output Total 1500 ml 400 ml Balance -300 ml -400 ml Intake Oral 1200 ml Output Urine Total 1500 ml 400 ml # Voids 1 1 # Bowel Movements 1 Labs Test 01/24/20 05:00 01/25/20 10:20 White Blood Count 5.7 K/UL (4.8-10.8) Red Blood Count 4.47 M/UL (4.70-6.10) Hemoglobin 14.8 G/DL (14.2-18.0) Hematocrit 45.2 % (42.0-52.0) Mean Corpuscular Volume 101 FL (80-99) Mean Corpuscular Hemoglobin 33.0 PG (27.0-31.0) Mean Corpuscular Hemoglobin Concent 32.7 G/DL (32.0-36.0) Red Cell Distribution Width 13.0 % (11.6-14.8) Platelet Count 159 K/UL (150-450) Mean Platelet Volume 6.4 FL (6.5-10.1) Neutrophils (%) (Auto) 60.7 % (45.0-75.0) Lymphocytes (%) (Auto) 25.1 % (20.0-45.0) Monocytes (%) (Auto) 9.6 % (1.0-10.0) Eosinophils (%) (Auto) 3.3 % (0.0-3.0) Basophils (%) (Auto) 1.4 % (0.0-2.0) Erythrocyte Sedimentation Rate 30 MM/HR (0-20) Prothrombin Time 10.7 SEC (9.30-11.50) Prothromb Time International Ratio 1.0 (0.9-1.1) Activated Partial Thromboplast Time 28 SEC (23-33) Sodium Level 142 MMOL/L (136-145) Potassium Level 4.4 MMOL/L (3.5-5.1) Chloride Level 106 MMOL/L (98-107) Carbon Dioxide Level 28 MMOL/L (21-32) Anion Gap 8 mmol/L (5-15) Blood Urea Nitrogen 18 mg/dL (7-18) Creatinine 1.2 MG/DL (0.55-1.30) Estimat Glomerular Filtration Rate > 60 mL/min (>60) Glucose Level 108 MG/DL (74-106) Lactic Acid Level 1.20 mmol/L (0.4-2.0) Calcium Level 8.8 MG/DL (8.5-10.1) Total Bilirubin 0.3 MG/DL (0.2-1.0) Aspartate Amino Transf (AST/SGOT) 17 U/L (15-37) Alanine Aminotransferase (ALT/SGPT) 26 U/L (12-78) Alkaline Phosphatase 75 U/L (46-116) C-Reactive Protein, Quantitative 1.1 mg/dL (0.00-0.90) Total Protein 7.4 G/DL (6.4-8.2) Albumin 3.4 G/DL (3.4-5.0) Globulin 4.0 g/dL Albumin/Globulin Ratio 0.9 (1.0-2.7) Amylase Level 43 U/L (25-115) Lipase 198 U/L (73-393) Lactate Dehydrogenase 162 U/L (81-234) Height (Feet): 5 Height (Inches): 7.00 Weight (Pounds): 350 Objective General Appearance: WD/WN, moderate distress Lines, tubes and drains: peripheral HEENT: normocephalic, atraumatic Respiratory/Chest: lungs clear Cardiovascular/Chest: normal rate Abdomen: soft, other - obese with some RUQ discomfort. negative Delarosa sign Extremities: slow capillary refill, moderate edema Skin Exam: other - HYPERPIGMENTATION IN THE LOWER EXTREMITIES WITH CHRONIC SKIN CHANGES Neurologic: surgical aide II-XII grossly normal Musculoskeletal: normal muscle bulk Mitchell Shultz MD Jan 26, 2020 08:20
[2020-01-26] MEDS: Aspirin Baby 81mg ORAL SCH ×2 (08:34→17:51)
[2020-01-26] MEDS: Docusate 100mg cap ORAL SCH ×2 (08:34→17:51)
--- NOTE | 2020-01-26 08:43 | Urology Progress Note ---
Assessment/Plan Status: stable, unchanged Assessment/Plan: 1. Solid left renal mass, most consistent with renal cell carcinoma. 2. Abdominal pain history. 3. Hematuria history. 4. BPH history. 5. Mild lower urinary tract symptoms. monitor clinically med/onc w/u considering nephrectomy at some point will likely have to done at tertiary care center given all comorbidities flomax added d/w primary service and onc Subjective Allergies: Coded Allergies: SULFAMETHOXAZOLE (Verified Allergy, Unknown, 01/22/20) TRIMETHOPRIM (Verified Allergy, Unknown, 01/22/20) VANCOMYCIN (Verified Allergy, Unknown, 01/22/20) Subjective all noted, feels fair Objective Last 24 Hour Vital Signs Date Time Temp Pulse Resp B/P (MAP) Pulse Ox O2 Delivery O2 Flow Rate FiO2 01/26/20 08:36 109/59 01/26/20 04:00 97.8 58 20 125/75 (92) 98 01/26/20 03:11 78 15 99 30 01/26/20 01:00 71 14 98 30 01/26/20 00:00 98.2 69 20 125/73 (90) 97 01/25/20 20:42 Room Air 01/25/20 20:00 97.9 84 18 139/83 (101) 93 01/25/20 18:07 127/61 01/25/20 16:00 97.3 67 18 127/61 (83) 97 01/25/20 13:46 125/76 01/25/20 12:00 97.2 69 19 125/76 (92) 97 01/25/20 09:00 Room Air Intake and Output 01/25/20 01/26/20 19:00 07:00 Intake Total 1200 ml Output Total 1500 ml 400 ml Balance -300 ml -400 ml Intake Oral 1200 ml Output Urine Total 1500 ml 400 ml # Voids 1 1 # Bowel Movements 1 Microbiology Date/Time Source Procedure Growth Status 01/22/20 21:20 Nasal Nares Right MRSA Culture - Final Staphylococcus Aureus - Mrsa Complete 01/22/20 21:20 Rectum - Final NO CARBAPENEM-RESISTANT ENTEROBACTERI... Complete Current Medications Medications (Trade) Dose Ordered Sig/Gloria Route PRN Reason Start Time Stop Time Status Last Admin Dose Admin Acetaminophen (Tylenol) 650 mg Q6H PRN ORAL fever T>100.3 and mild pain 01/24/20 13:27 02/21/20 13:26 Albuterol/ Ipratropium (Albuterol/ Ipratropium) 3 ml Q6H PRN HHN Shortness of Breath 01/24/20 13:28 01/27/20 13:27 Aspirin (ASA) 81 mg BID ORAL 01/24/20 18:00 03/07/20 19:59 01/26/20 08:34 Bisacodyl (Dulcolax) 10 mg DAILYPRN PRN RECTAL Constipation 01/24/20 19:00 04/21/20 18:59 Docusate Sodium (Colace) 100 mg TWICE A DAY ORAL 01/25/20 10:45 02/24/20 10:44 01/26/20 08:34 Furosemide (Lasix) 20 mg DAILY ORAL 01/25/20 09:00 02/22/20 08:59 01/26/20 08:34 Pantoprazole (Protonix) 40 mg DAILY ORAL 01/25/20 09:00 02/22/20 08:59 01/26/20 08:33 Pentoxifylline (TRENtal) 400 mg TID ORAL 01/24/20 18:00 04/21/20 20:59 01/26/20 08:36 Polyethylene Glycol (Miralax) 17 gm DAILY PRN ORAL Constipation 01/25/20 10:45 02/24/20 10:44 Potassium Chloride (K-Dur) 20 meq DAILY ORAL 01/25/20 09:00 04/22/20 08:59 01/26/20 08:34 Tamsulosin HCl (Flomax) 0.4 mg BEDTIME ORAL 01/24/20 21:00 02/23/20 20:59 Tramadol HCl (Ultram) 50 mg Q12H PRN ORAL Severe Pain (Pain Scale 7-10) 01/24/20 13:30 01/29/20 13:29 Laboratory Tests 01/25/20 10:20: Lactate Dehydrogenase 162 Height (Feet): 5 Height (Inches): 7.00 Weight (Pounds): 350 Objective exam stable venous duplex and CT A/P noted chest CT noted, negative Souleymane Raza MD Jan 26, 2020 08:43
[2020-01-26 09:25] LABS: BASOPHILS % (AUTO) 1.4 % (0.0-2.0); EOSINOPHILS % (AUTO) 3.6 % (0.0-3.0); HEMATOCRIT 41.3 % (42.0-52.0); HEMOGLOBIN 13.7 G/DL (14.2-18.0); LYMPHOCYTES % (AUTO) 24.7 % (20.0-45.0); MEAN CORPUSCULAR VOLUME 101 FL (80-99); MONOCYTES % (AUTO) 5.1 % (1.0-10.0); NEUTROPHILS % (AUTO) 65.3 % (45.0-75.0); PLATELET COUNT 150 K/UL (150-450); RED CELL DISTRIBUTION WIDTH 12.6 % (11.6-14.8); WHITE BLOOD COUNT 4.5 K/UL (4.8-10.8)
--- NOTE | 2020-01-26 09:30 | NUR ---
NURSE NOTES: patient told nurse he barely could sleep this night and would like to have his CPAP placed on him again in ordere for him to have some more rest. Nurse contacted RT Gayle, who came and placed patient on CPAP with the setting 11.
--- NOTE | 2020-01-26 11:03 | General Progress Note ---
Assessment/Plan Status: stable, unchanged Assessment/Plan: 69-year-old male with prior history of possible renal cancer and gallstones presenting with: # Abdominal pain RUQ US with gallstones AND 4.8 CM X 5.6 CM LEFT LOWER POLE RENAL MASS Dr. Shultz from oncology consulted. Surgery consultation with Dr. Poole Urology consultation with Dr. Raza LFT's and TB within normal limits Symptomatic treatment with tramadol # LEFT renal cancer - Not operated at [facility] last month. Will request hospital records for details. Oncology and Urology consultation ( Dr. Raza ) NOTED. NEED TO FINALIZE IF THE PATIENT IS A SURGICAL CANDIDATE VS OUTPATIENT FOLLOW UP. CTAP [facility] 01/24/20 NOW INCREASED TO 6.1 cm L renal mass CT CHEST 01/25/20 without metastasis [facility] US CTAP W CONTRAST 12/28/19 5.8 CM PARTIALLY EXOPHYTIC HETEROGENEOUSLY ENHANCING SOFT TISSUE MASS AT THE INFERIOR POLE OF THE LEFT KIDNEY. 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 Use only ASA for now bilateral lower extremity US with chronic DVT # FULL CODE # disposition likely to return to SNF due to limitation with ADL's and lack of permanent home in [place]. Subjective Date patient seen: Jan 26, 2020 ROS Limited/Unobtainable: No Constitutional: Reports: no symptoms HEENT: Reports: no symptoms Cardiovascular: Reports: no symptoms Respiratory: Reports: no symptoms Gastrointestinal/Abdominal: Reports: no symptoms Genitourinary: Reports: no symptoms Neurologic/Psychiatric: Reports: no symptoms Endocrine: Reports: no symptoms Hematologic/Lymphatic: Reports: no symptoms Allergies: Coded Allergies: SULFAMETHOXAZOLE (Verified Allergy, Unknown, 01/22/20) TRIMETHOPRIM (Verified Allergy, Unknown, 01/22/20) VANCOMYCIN (Verified Allergy, Unknown, 01/22/20) All Systems: reviewed and negative except above Subjective Feels well today. Abdominal discomfort is stable. Leg pain is at baseline. Seen by surgery, urology and oncology and tumor markers sent. Objective Last 24 Hour Vital Signs Date Time Temp Pulse Resp B/P (MAP) Pulse Ox O2 Delivery O2 Flow Rate FiO2 01/26/20 10:30 74 18 98 30 01/26/20 09:30 79 25 98 30 01/26/20 09:00 Room Air 01/26/20 08:36 109/59 01/26/20 08:00 96.4 75 18 101/53 (69) 96 01/26/20 07:50 109/59 (76) 01/26/20 04:00 97.8 58 20 125/75 (92) 98 01/26/20 03:11 78 15 99 30 01/26/20 01:00 71 14 98 30 01/26/20 00:00 98.2 69 20 125/73 (90) 97 01/25/20 20:42 Room Air 01/25/20 20:00 97.9 84 18 139/83 (101) 93 01/25/20 18:07 127/61 01/25/20 16:00 97.3 67 18 127/61 (83) 97 01/25/20 13:46 125/76 01/25/20 12:00 97.2 69 19 125/76 (92) 97 Intake and Output 01/25/20 01/26/20 19:00 07:00 Intake Total 1200 ml Output Total 1500 ml 400 ml Balance -300 ml -400 ml Intake Oral 1200 ml Output Urine Total 1500 ml 400 ml # Voids 1 1 # Bowel Movements 1 Laboratory Tests 01/26/20 09:05: White Blood Count 4.5L, Red Blood Count 4.10L, Hemoglobin 13.7L, Hematocrit 41.3L, Mean Corpuscular Volume 101H, Mean Corpuscular Hemoglobin 33.5H, Mean Corpuscular Hemoglobin Concent 33.3, Red Cell Distribution Width 12.6, Platelet Count 150, Mean Platelet Volume 6.4L, Neutrophils (%) (Auto) 65.3, Lymphocytes ( %) (Auto) 24.7, Monocytes (%) (Auto) 5.1, Eosinophils (%) (Auto) 3.6H, Basophils (%) (Auto) 1.4 Height (Feet): 5 Height (Inches): 7.00 Weight (Pounds): 350 General Appearance: WD/WN EENT: PERRL/EOMI Neck: non-tender Cardiovascular: normal rate Respiratory/Chest: lungs clear Abdomen: no mass Edema: mild edema Neurologic: confidential investigator II-XII grossly normal Objective CT ABDOMEN PELVIS 01/25/20 COMPARISON: Abdomen ultrasound January 22, 2020 FINDINGS: Prominent pericardial fat. Normal heart size. No acute consolidation or effusion or pneumothorax. Fatty changes of the liver with no acute abnormality. Small left hepatic lobe cyst. Gallstones visible in the gallbladder without biliary dilatation. Pancreas demonstrates no mass or inflammation. Spleen is unremarkable. Perinephric stranding of the kidneys. There is an enhancing heterogeneous mass arising from the left kidney measuring 6.1 x 5 cm. No hydronephrosis or nephrolithiasis appreciated. Dense aorta atherosclerosis without aneurysm. Diverticular disease of the colon without acute diverticulitis. Underdistended urinary bladder with mildly prominent and heterogeneous prostate gland. Small mesenteric and pelvic lymph nodes containing mesenteric fat. Diffuse degenerative changes of the hips and spine and sacroiliac joints with severe degeneration of the left hip. No acute fractures. IMPRESSION: Gallstones visible in the gallbladder without biliary dilatation. Diffuse fatty changes of the liver. Diverticular disease without diverticulitis. Soft tissue enhancing mass in lower pole of the left kidney worrisome for neoplastic process such as renal cell carcinoma. Severe degeneration of the left hip. US ABDOMEN 01/22/20 4.8 X 5.6 CM LEFT LOWER POLE RENAL MASS. POSSIBLY NEOPLASTIC. CHOLELITHIASIS, NO CBD DILATATION. DIFFUSE ECHOGENICITY CONSISTENT WITH HEPATOCELLULAR DISEASE. SMALL LIVER CYST PRIOR DATA REVIEWED (PATIENT HAS ELECTRONIC COPIES OF THE REPORTS) [facility] CTAP W CONTRAST 12/28/19 5.8 CM PARTIALLY EXOPHYTIC HETEROGENEOUSLY ENHANCING SOFT TISSUE MASS AT THE INFERIOR POLE OF THE LEFT KIDNEY. MOST CONSISTENT WITH RENAL CELL CARCINOMA, NO RENAL VEIN INVASION HEPATIC STEATOSIS CHOLELITHIASIS COLONIC DIVERTICULOSIS WITHOUT DIVERTICULITIS SEVERE LEFT HIP OSTEOARTHRITIS CT KUB 07/27/19 5.7 CM FLUID ATTENUATING LESION LEFT KIDNEY LOWER POLE Benita Braxton MD Jan 26, 2020 11:03
--- NOTE | 2020-01-26 12:25 | Surgery Progress Note ---
Surgery Progress Note Subjective Symptoms: improved, tolerating diet, voiding well, passing flatus, BM, pain decreased Objective Last 24 Hour Vital Signs Date Time Temp Pulse Resp B/P (MAP) Pulse Ox O2 Delivery O2 Flow Rate FiO2 01/26/20 10:30 74 18 98 30 01/26/20 09:30 79 25 98 30 01/26/20 09:00 Room Air 01/26/20 08:36 109/59 01/26/20 08:00 96.4 75 18 101/53 (69) 96 01/26/20 07:50 109/59 (76) 01/26/20 04:00 97.8 58 20 125/75 (92) 98 01/26/20 03:11 78 15 99 30 01/26/20 01:00 71 14 98 30 01/26/20 00:00 98.2 69 20 125/73 (90) 97 01/25/20 20:42 Room Air 01/25/20 20:00 97.9 84 18 139/83 (101) 93 01/25/20 18:07 127/61 01/25/20 16:00 97.3 67 18 127/61 (83) 97 01/25/20 13:46 125/76 I&O Intake and Output 01/25/20 01/26/20 19:00 07:00 Intake Total 1200 ml Output Total 1500 ml 400 ml Balance -300 ml -400 ml Intake Oral 1200 ml Output Urine Total 1500 ml 400 ml # Voids 1 1 # Bowel Movements 1 Cardiovascular: RSR Respiratory: clear Abdomen: soft, non-tender, present bowel sounds Extremities: no edema, no tenderness, no cyanosis Laboratory Tests Test 01/26/20 09:05 White Blood Count 4.5 K/UL (4.8-10.8) L Red Blood Count 4.10 M/UL (4.70-6.10) L Hemoglobin 13.7 G/DL (14.2-18.0) L Hematocrit 41.3 % (42.0-52.0) L Mean Corpuscular Volume 101 FL (80-99) H Mean Corpuscular Hemoglobin 33.5 PG (27.0-31.0) H Mean Corpuscular Hemoglobin Concent 33.3 G/DL (32.0-36.0) Red Cell Distribution Width 12.6 % (11.6-14.8) Platelet Count 150 K/UL (150-450) Mean Platelet Volume 6.4 FL (6.5-10.1) L Neutrophils (%) (Auto) 65.3 % (45.0-75.0) Lymphocytes (%) (Auto) 24.7 % (20.0-45.0) Monocytes (%) (Auto) 5.1 % (1.0-10.0) Eosinophils (%) (Auto) 3.6 % (0.0-3.0) H Basophils (%) (Auto) 1.4 % (0.0-2.0) Plan Problems: (1) Abdominal pain Assessment & Plan: 69-year-old male with abdominal discomfort. States worsening for some time now currently improved with medication. No nausea vomiting fever chills. Labs normal. States history of papillary disease and noted in prior imaging to have "mummified" gallbladder. Potential renal cancer. Prior imaging and history reviewed chart reviewed. Unfortunately very complex difficult case will require new imaging to evaluate the extent of problem. Currently he is stable comfortable without any significant complaints. There is concern for liver hepatobiliary disease that may be eminent or prominent given this history he explains. Thank you for letting participate in patient's care will follow with recommendations CT abdomen pelvis ordered Ultrasound abdomen ordered Labs ordered Thank you will follow with recommendations as above is available CT and ultrasound reviewed. Labs reviewed. Exam benign. In regards to the gallbladder patient has asymptomatic cholelithiasis at this time. Would not recommend cholecystectomy until becomes symptomatic. May potentially had symptoms in the past and could be biliary colic and consideration for outpatient elective cholecystectomy can be had. More pertinent is patient's left renal mass. Considerations for outpatient biopsy versus initiation of treatment. Defer to oncology. Discussed with primary care physician. Discharge planning from surgical standpoint. RUQ US with gallstones AND 4.8 CM X 5.6 CM LEFT LOWER POLE RENAL MASS [facility] CTAP W CONTRAST 12/28/19 5.8 CM PARTIALLY EXOPHYTIC HETEROGENEOUSLY ENHANCING SOFT TISSUE MASS AT THE INFERIOR POLE OF THE LEFT KIDNEY. 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 No gallbladder wall thickening nor pericholecystic fluid. Sonographic Delarosa's sign is negative. Common bile duct measures 5 mm in diameter. No intrahepatic biliary ductal dilatation. Liver demonstrates diffusely increased echogenicity, consistent with diffuse hepatocellular disease, most likely fatty change. It demonstrates a small cyst. Portal vein and hepatic veins are patent. Pancreas is unremarkable. Spleen is unremarkable. Left kidney measures 11.7 cm in length. Right kidney measures 12 cm length. Both kidneys demonstrate normal echogenicity. The left kidney demonstrates what appears to be a solid mass coming off of the lower pole, measures 4.8 cm x 5.6 cm diameter. No hydronephrosis. . Abdominal aorta is partially obscured by bowel gas, visualized portions are non-aneurysmal . Impression: 4.8 x 5.6 cm left lower pole renal mass. Possibly neoplastic. Further evaluation with contrast CT is recommended. This was discussed with patient's nurse at the time of interpretation Cholelithiasis. No biliary ductal dilatation Liver demonstrates diffusely increased echogenicity, consistent with diffuse hepatocellular disease, most likely fatty change. Small liver cyst Note incomplete visualization of the abdominal aorta (2) Renal mass (3) Acute embolism and thrombosis of femoral vein, bilateral (4) Acute embolism and thrombosis of popliteal vein, bilateral (5) Unspecified systolic (congestive) heart failure (6) Peripheral vascular disease, unspecified (7) Spinal stenosis, site unspecified (8) Malignant melanoma of skin, unspecified Krishna Cordon Jan 26, 2020 12:25
--- NOTE | 2020-01-26 12:30 | NUR ---
NURSE NOTES: patient requested RT Cesilia be taken off CPAP. Patient said he could rest some more this am. Accepted 100% of his lunch.
--- NOTE | 2020-01-26 19:29 | NUR ---
NURSE NOTES: Received report from JEANNA Lopez. Pt resting in bed, AAO x 4, on room air. CPAP at bedside. Pt no c/o pain or discomfort. No acute distress noted at this time. Encouraged to use call light. Walker at bedside. IV site intact. Bed locked, lowest position, alarm on, call light within reach. Will continue to monitor.
--- NOTE | 2020-01-26 19:36 | NUR ---
NURSE HAND-OFF: Important Events on Shift:[n/a] Patient Status: [stable] Diet: [regular] Pending Orders: [] Pending Results/Labs:[] Pending MD notification:[] Latest Vital Signs: Temperature 96.8 , Pulse 80 , B/P 116 /64 , Respiratory Rate 20 , O2 SAT 96 , Room Air, O2 Flow Rate . Vital Sign Comment: [] Latest Wadsworth Fall Score: 60 Fall Risk: High Risk Safety Measures: Call light Within Reach, Bed Alarm Zone 1, Side Rails Side Rails x2, Bed position Low and Locked. Fall Precautions: Yellow Socks Yellow Gown Door Sign Patient Fall Education Report given to [JEANNA Babin].
[2020-01-26] MEDS: Tamsulosin 0.4mg cap ORAL SCH (20:01)
[2020-01-27] VITALS: BP 135/86
[2020-01-27 04:00] VITALS: BP 118/73
[2020-01-27 07:25] LABS: BASOPHILS % (AUTO) 1.5 % (0.0-2.0); HEMATOCRIT 41.9 % (42.0-52.0); LYMPHOCYTES % (AUTO) 25.9 % (20.0-45.0); MEAN CORPUSCULAR VOLUME 100 FL (80-99); MONOCYTES % (AUTO) 7.6 % (1.0-10.0); NEUTROPHILS % (AUTO) 62.1 % (45.0-75.0); PLATELET COUNT 141 K/UL (150-450); RED BLOOD COUNT 4.18 M/UL (4.70-6.10); RED CELL DISTRIBUTION WIDTH 12.6 % (11.6-14.8); WHITE BLOOD COUNT 5.2 K/UL (4.8-10.8)
--- NOTE | 2020-01-27 07:25 | NUR ---
NURSE NOTES: RECEIVED PATIENT A/A/OX4. ABLE TO MAKE NEEDS KNOWN. AMBULATES WITH A WALKER. CALM AND COMFORTABLE. HAD BREAKFAST AND HAD EXCELLENT APPETITE. PIV PATENT AND INTACT. BED IN THE LOWEST POSITION, SIDERAILS ARE UP X2, CALL LIGHT IS WITHIN REACH. BED BRAKES AND LOCK @ ALL TIMES. WILL CONT TO MONITOR.
--- NOTE | 2020-01-27 07:30 | Hematology/Onc Progress Note ---
Assessment/Plan Assessment/Plan Assessment and Recs # RENAL CANCER likely -- p/w RUQ US with gallstones AND 4.8 CM X 5.6 CM LEFT LOWER POLE RENAL MASS [facility] CTAP W CONTRAST 12/28/19 5.8 CM PARTIALLY EXOPHYTIC HETEROGENEOUSLY ENHANCING SOFT TISSUE MASS AT THE INFERIOR POLE OF THE LEFT KIDNEY. MOST CONSISTENT WITH RENAL CELL CARCINOMA, NO RENAL VEIN INVASION HEPATIC STEATOSIS CHOLELITHIASIS COLONIC DIVERTICULOSIS WITHOUT DIVERTICULITIS SEVERE LEFT HIP OSTEOARTHRITIS --> have discussed with surg, and urology --> recommend potential nephrectomy if can tolerate (issue with obesity and comorbids) --> tumor markers holding off except Ldh --> ct chest with con ordered-->results shows no evidence of disease --> outpatient followup, may need immunotherapy after surgery is done # Pancytopenia with mostly leukopenia on presentation --> initally with low wbc and with low plt --> may be due to malignancy --> hep and hiv # 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 --> Use only ASA for now --> bilateral lower extremity US ordered. does show chronic right leg dvt --> consider lovenox if after surgery # Abdominal pain --> RUQ US with gallstones. Reportedly no CBD dilatation ==> per surg # PVD ==> COntinue Pentoxyphilline and asa # History of systolic CHF --> COntinue Lasix and KCl replacement # FULL CODE # Disposition likely to return to SNF Appreciate consultation and dw RN Subjective HEENT: Denies: no symptoms, eye pain, blurred vision, tearing, double vision, ear pain, ear discharge, nose pain, nose congestion, throat pain, throat swelling, mouth pain, mouth swelling, other Cardiovascular: Denies: no symptoms, chest pain, edema, irregular heart rate, lightheadedness, palpitations, syncope, other Respiratory: Denies: no symptoms, cough, shortness of breath, SOB with excertion, SOB at rest, sputum, wheezing, other Gastrointestinal/Abdominal: Denies: no symptoms, abdomen distended, abdominal pain, black stools, tarry stools, blood in stool, constipated, diarrhea, difficulty swallowing, nausea, poor appetite, poor fluid intake, rectal bleeding , vomiting, other Genitourinary: Denies: no symptoms, burning, discharge, frequency, flank pain, hematuria, incontinence, pain, urgency, other Neurologic/Psychiatric: Denies: no symptoms, anxiety, depressed, emotional problems, headache, numbness, paresthesia, pre-existing deficit, seizure, tingling, tremors, weakness, other Hematologic/Lymphatic: Denies: no symptoms, anemia, easy bleeding, easy bruising, adenopathy, other Allergies: Coded Allergies: SULFAMETHOXAZOLE (Verified Allergy, Unknown, 01/22/20) TRIMETHOPRIM (Verified Allergy, Unknown, 01/22/20) VANCOMYCIN (Verified Allergy, Unknown, 01/22/20) Subjective 01/25 on cpap overnight, no bleeding, labs reviewed, have dw him re outpatient plan again 01/26 feeling better, again on cpap overnight, no major complaints noted, wbc lower Objective Objective Current Medications Medications (Trade) Dose Ordered Sig/Gloria Route PRN Reason Start Time Stop Time Status Last Admin Dose Admin Acetaminophen (Tylenol) 650 mg Q6H PRN ORAL fever T>100.3 and mild pain 01/24/20 13:27 02/21/20 13:26 Albuterol/ Ipratropium (Albuterol/ Ipratropium) 3 ml Q6H PRN HHN Shortness of Breath 01/24/20 13:28 01/27/20 13:27 Aspirin (ASA) 81 mg BID ORAL 01/24/20 18:00 03/07/20 19:59 01/26/20 17:51 Bisacodyl (Dulcolax) 10 mg DAILYPRN PRN RECTAL Constipation 01/24/20 19:00 04/21/20 18:59 Docusate Sodium (Colace) 100 mg TWICE A DAY ORAL 01/25/20 10:45 02/24/20 10:44 01/26/20 17:51 Furosemide (Lasix) 20 mg DAILY ORAL 01/25/20 09:00 02/22/20 08:59 01/26/20 08:34 Pantoprazole (Protonix) 40 mg DAILY ORAL 01/25/20 09:00 02/22/20 08:59 01/26/20 08:33 Pentoxifylline (TRENtal) 400 mg TID ORAL 01/24/20 18:00 04/21/20 20:59 01/26/20 17:51 Polyethylene Glycol (Miralax) 17 gm DAILY PRN ORAL Constipation 9/6/20 10:45 02/24/20 10:44 Potassium Chloride (K-Dur) 20 meq DAILY ORAL 01/25/20 09:00 04/22/20 08:59 01/26/20 08:34 Tamsulosin HCl (Flomax) 0.4 mg BEDTIME ORAL 01/24/20 21:00 02/23/20 20:59 Tramadol HCl (Ultram) 50 mg Q12H PRN ORAL Severe Pain (Pain Scale 7-10) 01/24/20 13:30 01/29/20 13:29 Last 24 Hour Vital Signs Date Time Temp Pulse Resp B/P (MAP) Pulse Ox O2 Delivery O2 Flow Rate FiO2 01/27/20 04:00 97.9 67 18 118/73 (88) 99 01/27/20 00:00 97.2 78 18 135/86 (102) 96 01/26/20 22:56 74 18 98 30 01/26/20 21:00 Room Air 01/26/20 20:00 97.1 86 20 133/88 (103) 97 01/26/20 17:51 116/64 01/26/20 16:00 96.8 80 20 116/64 (81) 96 01/26/20 12:40 109/59 01/26/20 12:00 96.2 78 20 112/61 (78) 97 01/26/20 10:30 74 18 98 30 01/26/20 09:30 79 25 98 30 01/26/20 09:00 Room Air 01/26/20 08:36 109/59 01/26/20 08:00 96.4 75 18 101/53 (69) 96 01/26/20 07:50 109/59 (76) 01/26/20 04:00 97.8 58 20 125/75 (92) 98 01/26/20 03:11 78 15 99 30 01/26/20 01:00 71 14 98 30 01/26/20 00:00 98.2 69 20 125/73 (90) 97 01/25/20 20:42 Room Air 01/25/20 20:00 97.9 84 18 139/83 (101) 93 01/25/20 18:07 127/61 01/25/20 16:00 97.3 67 18 127/61 (83) 97 01/25/20 13:46 125/76 01/25/20 12:00 97.2 69 19 125/76 (92) 97 01/25/20 09:00 Room Air 01/25/20 08:30 128/77 01/25/20 08:00 97.7 79 19 128/77 (94) 95 Intake and Output 01/26/20 01/27/20 19:00 07:00 Intake Total 480 ml Output Total 350 ml Balance 480 ml -350 ml Intake Oral 480 ml Output Urine Total 350 ml # Voids 3 1 # Bowel Movements 3 Labs Test 01/25/20 10:20 01/26/20 09:05 01/27/20 06:00 Lactate Dehydrogenase 162 U/L (81-234) White Blood Count 4.5 K/UL (4.8-10.8) Red Blood Count 4.10 M/UL (4.70-6.10) Hemoglobin 13.7 G/DL (14.2-18.0) Hematocrit 41.3 % (42.0-52.0) Mean Corpuscular Volume 101 FL (80-99) Mean Corpuscular Hemoglobin 33.5 PG (27.0-31.0) Mean Corpuscular Hemoglobin Concent 33.3 G/DL (32.0-36.0) Red Cell Distribution Width 12.6 % (11.6-14.8) Platelet Count 150 K/UL (150-450) Mean Platelet Volume 6.4 FL (6.5-10.1) Neutrophils (%) (Auto) 65.3 % (45.0-75.0) Lymphocytes (%) (Auto) 24.7 % (20.0-45.0) Monocytes (%) (Auto) 5.1 % (1.0-10.0) Eosinophils (%) (Auto) 3.6 % (0.0-3.0) Basophils (%) (Auto) 1.4 % (0.0-2.0) Height (Feet): 5 Height (Inches): 7.00 Weight (Pounds): 350 Objective General Appearance: WD/WN, moderate distress Lines, tubes and drains: peripheral HEENT: normocephalic, atraumatic Respiratory/Chest: lungs clear Cardiovascular/Chest: normal rate Abdomen: soft, other - obese with some RUQ discomfort. negative Delarosa sign Extremities: slow capillary refill, moderate edema Skin Exam: other - HYPERPIGMENTATION IN THE LOWER EXTREMITIES WITH CHRONIC SKIN CHANGES Neurologic: digester cook II-XII grossly normal Musculoskeletal: normal muscle bulk Mitchell Shultz MD Jan 27, 2020 07:30
--- NOTE | 2020-01-27 07:36 | NUR ---
NURSE HAND-OFF: Important Events on Shift:N Patient Status: stable Diet: reg Pending Orders: N Pending Results/Labs:AM labs Pending MD notification:N Latest Vital Signs: Temperature 97.9 , Pulse 67 , B/P 118 /73 , Respiratory Rate 18 , O2 SAT 99 , Room Air, O2 Flow Rate . Vital Sign Comment: N Latest Wadsworth Fall Score: 60 Fall Risk: High Risk Safety Measures: Call light Within Reach, Bed Alarm Zone 1, Side Rails Side Rails x2, Bed position Low and Locked. Fall Precautions: Yellow Socks Yellow Gown Door Sign Patient Fall Education Report given to [Anita].
[2020-01-27 07:58] LABS: ANION GAP 6 mmol/L (5-15); BLOOD UREA NITROGEN 19 mg/dL (7-18); CALCIUM 8.8 MG/DL (8.5-10.1); CARBON DIOXIDE 30 MMOL/L (21-32); CHLORIDE 106 MMOL/L (98-107); CREATININE 1.2 MG/DL (0.55-1.30); SODIUM 142 MMOL/L (136-145)
[2020-01-27 08:00] VITALS: BP 134/81
[2020-01-27] MEDS: Docusate 100mg cap ORAL SCH ×2 (08:21→17:01)
[2020-01-27] MEDS: Aspirin Baby 81mg ORAL SCH ×2 (08:21→17:01)
--- NOTE | 2020-01-27 08:39 | Urology Progress Note ---
Assessment/Plan Status: stable, unchanged Assessment/Plan: 1. Solid left renal mass, most consistent with renal cell carcinoma. 2. Abdominal pain history. 3. Hematuria history. 4. BPH history. 5. Mild lower urinary tract symptoms. monitor clinically med/onc w/u considering nephrectomy at some point will likely have to done at tertiary care center given all comorbidities flomax added renal fxn stable d/w primary service and onc Subjective Allergies: Coded Allergies: SULFAMETHOXAZOLE (Verified Allergy, Unknown, 01/22/20) TRIMETHOPRIM (Verified Allergy, Unknown, 01/22/20) VANCOMYCIN (Verified Allergy, Unknown, 01/22/20) Subjective all noted, feels fair Objective Last 24 Hour Vital Signs Date Time Temp Pulse Resp B/P (MAP) Pulse Ox O2 Delivery O2 Flow Rate FiO2 01/27/20 08:22 138/71 01/27/20 04:00 97.9 67 18 118/73 (88) 99 01/27/20 00:00 97.2 78 18 135/86 (102) 96 01/26/20 22:56 74 18 98 30 01/26/20 21:00 Room Air 01/26/20 20:00 97.1 86 20 133/88 (103) 97 01/26/20 17:51 116/64 01/26/20 16:00 96.8 80 20 116/64 (81) 96 01/26/20 12:40 109/59 01/26/20 12:00 96.2 78 20 112/61 (78) 97 01/26/20 10:30 74 18 98 30 01/26/20 09:30 79 25 98 30 01/26/20 09:00 Room Air Intake and Output 01/26/20 01/27/20 19:00 07:00 Intake Total 480 ml Output Total 350 ml Balance 480 ml -350 ml Intake Oral 480 ml Output Urine Total 350 ml # Voids 3 1 # Bowel Movements 3 Microbiology Date/Time Source Procedure Growth Status 01/22/20 21:20 Nasal Nares Right MRSA Culture - Final Staphylococcus Aureus - Mrsa Complete 01/22/20 21:20 Rectum - Final NO CARBAPENEM-RESISTANT ENTEROBACTERI... Complete Current Medications Medications (Trade) Dose Ordered Sig/Gloria Route PRN Reason Start Time Stop Time Status Last Admin Dose Admin Acetaminophen (Tylenol) 650 mg Q6H PRN ORAL fever T>100.3 and mild pain 01/24/20 13:27 02/21/20 13:26 Albuterol/ Ipratropium (Albuterol/ Ipratropium) 3 ml Q6H PRN HHN Shortness of Breath 01/24/20 13:28 01/27/20 13:27 Aspirin (ASA) 81 mg BID ORAL 01/24/20 18:00 03/07/20 19:59 01/27/20 08:21 Bisacodyl (Dulcolax) 10 mg DAILYPRN PRN RECTAL Constipation 01/24/20 19:00 04/21/20 18:59 Docusate Sodium (Colace) 100 mg TWICE A DAY ORAL 01/25/20 10:45 02/24/20 10:44 01/27/20 08:21 Furosemide (Lasix) 20 mg DAILY ORAL 01/25/20 09:00 02/22/20 08:59 01/26/20 08:34 Pantoprazole (Protonix) 40 mg DAILY ORAL 01/25/20 09:00 02/22/20 08:59 01/27/20 08:22 Pentoxifylline (TRENtal) 400 mg TID ORAL 01/24/20 18:00 04/21/20 20:59 01/27/20 08:22 Polyethylene Glycol (Miralax) 17 gm DAILY PRN ORAL Constipation 01/25/20 10:45 02/24/20 10:44 Potassium Chloride (K-Dur) 20 meq DAILY ORAL 01/25/20 09:00 04/22/20 08:59 01/27/20 08:21 Tamsulosin HCl (Flomax) 0.4 mg BEDTIME ORAL 01/24/20 21:00 02/23/20 20:59 Tramadol HCl (Ultram) 50 mg Q12H PRN ORAL Severe Pain (Pain Scale 7-10) 01/24/20 13:30 01/29/20 13:29 Laboratory Tests 01/26/20 09:05: White Blood Count 4.5L, Red Blood Count 4.10L, Hemoglobin 13.7L, Hematocrit 41.3L, Mean Corpuscular Volume 101H, Mean Corpuscular Hemoglobin 33.5H, Mean Corpuscular Hemoglobin Concent 33.3, Red Cell Distribution Width 12.6, Platelet Count 150, Mean Platelet Volume 6.4L, Neutrophils (%) (Auto) 65.3, Lymphocytes ( %) (Auto) 24.7, Monocytes (%) (Auto) 5.1, Eosinophils (%) (Auto) 3.6H, Basophils (%) (Auto) 1.4 01/27/20 06:00: White Blood Count 5.2, Red Blood Count 4.18L, Hemoglobin 14.0L, Hematocrit 41.9L , Mean Corpuscular Volume 100H, Mean Corpuscular Hemoglobin 33.6H, Mean Corpuscular Hemoglobin Concent 33.5, Red Cell Distribution Width 12.6, Platelet Count 141L, Mean Platelet Volume 6.5, Neutrophils (%) (Auto) 62.1, Lymphocytes ( %) (Auto) 25.9, Monocytes (%) (Auto) 7.6, Eosinophils (%) (Auto) 3.0, Basophils (%) (Auto) 1.5, Sodium Level 142, Potassium Level 4.0, Chloride Level 106, Carbon Dioxide Level 30, Anion Gap 6, Blood Urea Nitrogen 19H, Creatinine 1.2, Estimat Glomerular Filtration Rate > 60, Glucose Level 98, Calcium Level 8.8, Hepatitis A IgM Antibody [Pending], Hepatitis B Surface Antigen [Pending], Hepatitis B Core IgM Antibody [Pending], Hepatitis C Antibody [Pending], HIV (1& 2) Antibody Rapid [Pending] Height (Feet): 5 Height (Inches): 7.00 Weight (Pounds): 350 Objective exam stable venous duplex and CT A/P noted chest CT noted, negative Souleymane Raza MD Jan 27, 2020 08:39
--- NOTE | 2020-01-27 09:42 | NUR ---
RD ASSESSMENT & RECOMMENDATIONS SEE CARE ACTIVITY FOR COMPLETE ASSESSMENT DAILY ESTIMATED NEEDS: Needs based on Obese, ca 90kg abw 20-25 kcals/kg 0271-1495 total kcals 1-2 g protein/kg 90-180 g total protein Fluid per MD, on lasix NUTRITION DIAGNOSIS: Decreased sodium and fat needs r/t clinical and obese status as evidenced by pt w/ BL LE edema, on lasix, BMI morbidly obese, pt is 236% of ideal body weight. CURRENT DIET: Regular PO DIET RECOMMENDATIONS: CCHO MED/ Cardiac diet (Low Na/ Low Fat) ADDITIONAL RECOMMENDATIONS: 1) Obtain a standing wt as able Daily wts on lasix 2) Bed side BG checks (A1C 6.7)
[2020-01-27 12:00] VITALS: BP 127/79
--- NOTE | 2020-01-27 12:37 | Surgery Progress Note ---
Surgery Progress Note Subjective Symptoms: improved, tolerating diet, voiding well, passing flatus, BM Objective Last 24 Hour Vital Signs Date Time Temp Pulse Resp B/P (MAP) Pulse Ox O2 Delivery O2 Flow Rate FiO2 01/27/20 12:00 97.0 66 18 127/79 (95) 98 01/27/20 09:00 Room Air 01/27/20 08:22 138/71 01/27/20 08:00 97.7 73 19 134/81 (98) 96 01/27/20 04:00 97.9 67 18 118/73 (88) 99 01/27/20 00:00 97.2 78 18 135/86 (102) 96 01/26/20 22:56 74 18 98 30 01/26/20 21:00 Room Air 01/26/20 20:00 97.1 86 20 133/88 (103) 97 01/26/20 17:51 116/64 01/26/20 16:00 96.8 80 20 116/64 (81) 96 01/26/20 12:40 109/59 I&O Intake and Output 01/26/20 01/27/20 19:00 07:00 Intake Total 480 ml Output Total 350 ml Balance 480 ml -350 ml Intake Oral 480 ml Output Urine Total 350 ml # Voids 3 1 # Bowel Movements 3 Cardiovascular: RSR Respiratory: clear Abdomen: soft, flat, non-tender, present bowel sounds, other Extremities: no edema, no tenderness, no cyanosis Laboratory Tests Test 01/27/20 06:00 White Blood Count 5.2 K/UL (4.8-10.8) Red Blood Count 4.18 M/UL (4.70-6.10) L Hemoglobin 14.0 G/DL (14.2-18.0) L Hematocrit 41.9 % (42.0-52.0) L Mean Corpuscular Volume 100 FL (80-99) H Mean Corpuscular Hemoglobin 33.6 PG (27.0-31.0) H Mean Corpuscular Hemoglobin Concent 33.5 G/DL (32.0-36.0) Red Cell Distribution Width 12.6 % (11.6-14.8) Platelet Count 141 K/UL (150-450) L Mean Platelet Volume 6.5 FL (6.5-10.1) Neutrophils (%) (Auto) 62.1 % (45.0-75.0) Lymphocytes (%) (Auto) 25.9 % (20.0-45.0) Monocytes (%) (Auto) 7.6 % (1.0-10.0) Eosinophils (%) (Auto) 3.0 % (0.0-3.0) Basophils (%) (Auto) 1.5 % (0.0-2.0) Sodium Level 142 MMOL/L (136-145) Potassium Level 4.0 MMOL/L (3.5-5.1) Chloride Level 106 MMOL/L (98-107) Carbon Dioxide Level 30 MMOL/L (21-32) Anion Gap 6 mmol/L (5-15) Blood Urea Nitrogen 19 mg/dL (7-18) H Creatinine 1.2 MG/DL (0.55-1.30) Estimat Glomerular Filtration Rate > 60 mL/min (>60) Glucose Level 98 MG/DL (74-106) Calcium Level 8.8 MG/DL (8.5-10.1) Hepatitis A IgM Antibody Pending Hepatitis B Surface Antigen Pending Hepatitis B Core IgM Antibody Pending Hepatitis C Antibody Pending HIV (1&2) Antibody Rapid Negative (NEGATIVE) Plan Problems: (1) Abdominal pain Assessment & Plan: 69-year-old male with abdominal discomfort. States worsening for some time now currently improved with medication. No nausea vomiting fever chills. Labs normal. States history of papillary disease and noted in prior imaging to have "mummified" gallbladder. Potential renal cancer. Prior imaging and history reviewed chart reviewed. Unfortunately very complex difficult case will require new imaging to evaluate the extent of problem. Currently he is stable comfortable without any significant complaints. There is concern for liver hepatobiliary disease that may be eminent or prominent given this history he explains. Thank you for letting participate in patient's care will follow with recommendations CT abdomen pelvis ordered Ultrasound abdomen ordered Labs ordered Thank you will follow with recommendations as above is available CT and ultrasound reviewed. Labs reviewed. Exam benign. In regards to the gallbladder patient has asymptomatic cholelithiasis at this time. Would not recommend cholecystectomy until becomes symptomatic. May potentially had symptoms in the past and could be biliary colic and consideration for outpatient elective cholecystectomy can be had. More pertinent is patient's left renal mass. Considerations for outpatient biopsy versus initiation of treatment. Defer to oncology. Discussed with primary care physician. Discharge planning from surgical standpoint. urology input noted partial nephrectomy at tertiary center given comorbidities okay to d/c from surgical standpoint thank you RUQ US with gallstones AND 4.8 CM X 5.6 CM LEFT LOWER POLE RENAL MASS [facility] CTAP W CONTRAST 12/28/19 5.8 CM PARTIALLY EXOPHYTIC HETEROGENEOUSLY ENHANCING SOFT TISSUE MASS AT THE INFERIOR POLE OF THE LEFT KIDNEY. 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 No gallbladder wall thickening nor pericholecystic fluid. Sonographic Delarosa's sign is negative. Common bile duct measures 5 mm in diameter. No intrahepatic biliary ductal dilatation. Liver demonstrates diffusely increased echogenicity, consistent with diffuse hepatocellular disease, most likely fatty change. It demonstrates a small cyst. Portal vein and hepatic veins are patent. Pancreas is unremarkable. Spleen is unremarkable. Left kidney measures 11.7 cm in length. Right kidney measures 12 cm length. Both kidneys demonstrate normal echogenicity. The left kidney demonstrates what appears to be a solid mass coming off of the lower pole, measures 4.8 cm x 5.6 cm diameter. No hydronephrosis. . Abdominal aorta is partially obscured by bowel gas, visualized portions are non-aneurysmal . Impression: 4.8 x 5.6 cm left lower pole renal mass. Possibly neoplastic. Further evaluation with contrast CT is recommended. This was discussed with patient's nurse at the time of interpretation Cholelithiasis. No biliary ductal dilatation Liver demonstrates diffusely increased echogenicity, consistent with diffuse hepatocellular disease, most likely fatty change. Small liver cyst Note incomplete visualization of the abdominal aorta (2) Renal mass (3) Acute embolism and thrombosis of femoral vein, bilateral (4) Acute embolism and thrombosis of popliteal vein, bilateral (5) Unspecified systolic (congestive) heart failure (6) Peripheral vascular disease, unspecified (7) Spinal stenosis, site unspecified (8) Malignant melanoma of skin, unspecified Krishna Cordon Jan 27, 2020 12:37
--- NOTE | 2020-01-27 13:08 | Discharge Instructions ---
Discharge Instructions Discharge Instructions Services at Discharge: day care Diet: 2 GM sodium (low sodium) Resume Normal Activity?: Yes Activity: resume normal activities Follow Up Orders make appointment with Dr. Raza ( urology ) [facility] Return to Work/School on: Jan 27, 2020 For Congestive Heart Failure Reminder Report to your physician any weight gain of 5 pounds or more in one week. Benita Braxton MD Jan 27, 2020 13:08
--- NOTE | 2020-01-27 13:12 | Discharge Summary ---
Discharge Summary Hospital Course Date of Admission Jan 22, 2020 at 10:26 Date of Discharge 01/27/20 Admitting Diagnosis abdominal pain, choledocholithiasis, renal mass HPI Noel Gray is a 69 year old male who was admitted on Jan 22, 2020 at 10:26 for Renal Mass, Abdominal Pain Hospital Course Assessment/Plan: 69-year-old male with prior history of possible renal cancer and gallstones presenting with: # Abdominal pain RUQ US with gallstones AND 4.8 CM X 5.6 CM LEFT LOWER POLE RENAL MASS Dr. Shultz from oncology consulted. Surgery consultation with Dr. Poole Urology consultation with Dr. Raza LFT's and TB within normal limits Symptomatic treatment with tramadol # LEFT renal cancer - Not operated at [facility] last month. Oncology and Urology consultation ( Dr. Raza ) NOTED. OUTPATIENT FOLLOW UP at [facility] to follow as he needs tertiary level hospital for intervention. CTAP [facility] 01/24/20 NOW INCREASED TO 6.1 cm L renal mass CT CHEST 01/25/20 without metastasis [facility] CTAP W CONTRAST 12/28/19 5.8 CM PARTIALLY EXOPHYTIC HETEROGENEOUSLY ENHANCING SOFT TISSUE MASS AT THE INFERIOR POLE OF THE LEFT KIDNEY. 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 Use only ASA for now bilateral lower extremity US with chronic DVT # FULL CODE # disposition likely to return to SNF due to limitation with ADL's and lack of permanent home in [place]. Discharge Medications Continued Medications: Aspirin Ec* (Aspirin Ec*) 81 Mg Tablet.dr 81 MG ORAL DAILY for DVT PPx, TAB Bisacodyl* (Dulcolax*) 5 Mg Tablet.dr 10 MG ORAL DAILY for Constipation, #10 TAB 0 Refills Furosemide* (Lasix*) 20 Mg Tablet 20 MG ORAL DAILY for CHF, TAB Ipratropium/Albuterol Sulfate (Combivent Respimat Inhal [place]) 4 Gm Mist.inhal 4 GM IH for SOB, GM Magnesium Hydroxide* (Milk Of Magnesia*) 2,400 Mg/10 Ml Oral.susp 30 ML ORAL DAILY for Constipation, ML Pantoprazole* (Protonix*) 40 Mg Tablet.dr 20 MG ORAL DAILY for GERD, TAB Pentoxifylline* (Trental*) 400 Mg Tablet.er 400 MG ORAL THREE TIMES A DAY for Peripheral Arterial Dse, #30 TAB 0 Refills Potassium Chloride (Potassium Chloride) 20 Meq Packet 20 MEQ ORAL DAILY for hypokalemia, #30 PKT 0 Refills Tramadol Hcl* (Ultram*) 50 Mg Tablet 50 MG ORAL Q6H PRN for For Pain, #12 TAB 0 Refills Discharge Condition Upon Discharge: stable Discharge Vital Signs Last Vital Signs Date Time Temp Pulse Resp B/P (MAP) Pulse Ox O2 Delivery O2 Flow Rate FiO2 01/27/20 12:00 97.0 66 18 127/79 (95) 98 01/27/20 09:00 Room Air 01/26/20 22:56 30 Discharge Disposition Patient was discharged to [facility] ( BED ON HOLD ) PATIENT CAME FROM THERE Discharge Diagnoses: (1) Renal mass (2) Unspecified systolic (congestive) heart failure (3) Peripheral vascular disease, unspecified (4) Spinal stenosis, site unspecified (5) Acute embolism and thrombosis of femoral vein, bilateral (6) Abdominal pain Discharge Instructions Discharge Instructions Services Upon Discharge: day care Activity: resume normal activities May Return to Work/School On: Jan 27, 2020 Benita Braxton MD Jan 27, 2020 13:12
--- NOTE | 2020-01-27 13:27 | NUR ---
*-*DISCHARGE PLANNING*-* PATIENT HAS BEEN REFERRED TO: [facility] P: [phone]
--- NOTE | 2020-01-27 13:28 | NUR ---
*-*DISCHARGE PLANNED*-* PATIENT HAS BEEN ACCEPTED AND DISCHARGED BACK TO: [facility] P: [phone] FOR NURSE TO NURSE REPORT ROOM# 20.B SKILLED [facility] SET FOR 3:20PM S/W [id number].
--- NOTE | 2020-01-27 14:04 | NUR ---
NURSE NOTES: rapid covid swabbed rendered and sent to lab. will cont to monitor Addendum: 01/27/20 at 1441 by ASHLEY BRITT LVN RESULT CAME BACK NEGATIVE. WILL CONT TO MONITOR.
--- NOTE | 2020-01-27 15:00 | NUR ---
NURSE NOTES: REPORT GIVEN TO JAYDEN @ [facility]. PERSONAL BELONGINGS NOTED. AWAITING FOR AMBULANCE. WILL CONT TO MONITOR.
[2020-01-27 16:00] VITALS: BP 129/64
--- NOTE | 2020-01-27 16:23 | NUR ---
NURSE NOTES: CALLED [id number] TO F/U WITH THE AMBULANCE. SPOKE WITH JS AND CLAIMED THAT IT WAS NOT CALLED IN FOR THE TIME THAT WAS REPORTED TO THE NURSE. I HAD JS CHECKED AGAIN AND STATED THAT NO CALLS THAT WAS RECEIVED. ALTHOUGH, NEXT ETA WILL BE @ 1730H. READ CM NOTES AND NOTED THERE WAS SPOKEN TO [facility] AND RELAYED MSG TO JEMIMA. WILL CONT TO MONITOR.
--- NOTE | 2020-01-27 19:08 | NUR ---
NURSE NOTES: AMBULANCE PERSONNEL HAD TO CALL FOR ANOTHER DISPATCH DUE TO PATIENT'S WEIGHT. ENDORSED TO JEANNA OJEDA TO REMOVE IV ACCESS WHEN AMBULANCE ARRIVES.WILL CONT TO MONITOR.
--- NOTE | 2020-01-27 19:09 | NUR ---
NURSE HAND-OFF: Important Events on Shift: AWAITS FOR AMBULANCE. Patient Status: Diet: Pending Orders: Pending Results/Labs: Pending MD notification: Latest Vital Signs: Temperature 97.3 , Pulse 69 , B/P 129 /64 , Respiratory Rate 18 , O2 SAT 98 , Room Air, O2 Flow Rate . Vital Sign Comment: Latest Wadsworth Fall Score: 60 Fall Risk: High Risk Safety Measures: Call light Within Reach, Bed Alarm Zone 1, Side Rails Side Rails x2, Bed position Low and Locked. Fall Precautions: Yellow Socks Yellow Gown Door Sign Patient Fall Education Report given to
--- NOTE | 2020-01-27 19:50 | NUR ---
NURSE NOTES: Received report from JAGDISH Howard. Pt resting in bed, AAO x 4, on room air. Pt no c/o pain or discomfort. No acute distress noted at this time. Encouraged to use call light. Walker at bedside. IV site intact. Bed locked, lowest position, alarm on, call light within reach. Waiting for ambulance.
[2020-01-27 20:00] VITALS: BP 158/81
[2020-01-27] MEDS: Tamsulosin 0.4mg cap ORAL SCH (20:34)
--- NOTE | 2020-01-27 21:27 | NUR ---
NURSE NOTES: Waiting ambulance to discharge to [address] but pt refused and wants to go to [facility]. Left message Dr. Braxton.
--- NOTE | 2020-01-27 22:07 | NUR ---
NURSE NOTES: Canceled ambulance and spoke with Nannette from [facility]. Dr. Braxton aware that pt refused discharge
[2020-01-28] VITALS: BP 147/78
[2020-01-28 04:00] VITALS: BP 121/69
--- NOTE | 2020-01-28 05:11 | NUR ---
NURSE NOTES: Pt refused AM labs. Education given but still refused x 2
--- NOTE | 2020-01-28 07:07 | NUR ---
NURSE HAND-OFF: Important Events on Shift:Refused discharge and AM labs Patient Status: stable Diet: reg Pending Orders: N Pending Results/Labs:N Pending MD notification:N Latest Vital Signs: Temperature 98.0 , Pulse 66 , B/P 121 /69 , Respiratory Rate 19 , O2 SAT 97 , Room Air, O2 Flow Rate . Vital Sign Comment: [] Latest Wadsworth Fall Score: 60 Fall Risk: High Risk Safety Measures: Call light Within Reach, Bed Alarm Zone 1, Side Rails Side Rails x2, Bed position Low and Locked. Fall Precautions: Yellow Socks Yellow Gown Door Sign Patient Fall Education Report given to [Boni].
--- NOTE | 2020-01-28 07:22 | Hematology/Onc Progress Note ---
Assessment/Plan Assessment/Plan Assessment and Recs # RENAL CANCER likely -- p/w RUQ US with gallstones AND 4.8 CM X 5.6 CM LEFT LOWER POLE RENAL MASS [facility] CTAP W CONTRAST 12/28/19 5.8 CM PARTIALLY EXOPHYTIC HETEROGENEOUSLY ENHANCING SOFT TISSUE MASS AT THE INFERIOR POLE OF THE LEFT KIDNEY. MOST CONSISTENT WITH RENAL CELL CARCINOMA, NO RENAL VEIN INVASION HEPATIC STEATOSIS CHOLELITHIASIS COLONIC DIVERTICULOSIS WITHOUT DIVERTICULITIS SEVERE LEFT HIP OSTEOARTHRITIS --> have discussed with surg, and urology --> recommend potential nephrectomy if can tolerate (issue with obesity and comorbids) --> tumor markers holding off except Ldh --> ct chest with con ordered-->results shows no evidence of disease --> outpatient followup, may need immunotherapy after surgery is done # Pancytopenia with mostly leukopenia on presentation --> initally with low wbc and with low plt --> may be due to malignancy --> hep and hiv-->neg # 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 --> Use only ASA for now --> bilateral lower extremity US ordered. does show chronic right leg dvt --> consider lovenox if after surgery # Abdominal pain --> RUQ US with gallstones. Reportedly no CBD dilatation ==> per surg # PVD ==> COntinue Pentoxyphilline and asa # History of systolic CHF --> COntinue Lasix and KCl replacement # FULL CODE # Disposition likely to SNF/post acute Appreciate consultation and dw RN Subjective Constitutional: Denies: no symptoms, chills, fever, malaise, weakness, other HEENT: Denies: no symptoms, eye pain, blurred vision, tearing, double vision, ear pain, ear discharge, nose pain, nose congestion, throat pain, throat swelling, mouth pain, mouth swelling, other Cardiovascular: Denies: no symptoms, chest pain, edema, irregular heart rate, lightheadedness, palpitations, syncope, other Respiratory: Denies: no symptoms, cough, shortness of breath, SOB with excertion, SOB at rest, sputum, wheezing, other Gastrointestinal/Abdominal: Denies: no symptoms, abdomen distended, abdominal pain, black stools, tarry stools, blood in stool, constipated, diarrhea, difficulty swallowing, nausea, poor appetite, poor fluid intake, rectal bleeding , vomiting, other Neurologic/Psychiatric: Denies: no symptoms, anxiety, depressed, emotional problems, headache, numbness, paresthesia, pre-existing deficit, seizure, tingling, tremors, weakness, other Endocrine: Denies: no symptoms, excessive sweating, flushing, intolerance to cold, intolerance to heat, increased hunger, increased thirst, increased urine, unexplained weight gain, unexplained weight loss, other Hematologic/Lymphatic: Denies: no symptoms, anemia, easy bleeding, easy bruising, adenopathy, other Allergies: Coded Allergies: SULFAMETHOXAZOLE (Verified Allergy, Unknown, 01/22/20) TRIMETHOPRIM (Verified Allergy, Unknown, 01/22/20) VANCOMYCIN (Verified Allergy, Unknown, 01/22/20) Subjective 01/25 on cpap overnight, no bleeding, labs reviewed, have dw him re outpatient plan again 01/26 feeling better, again on cpap overnight, no major complaints noted, wbc lower 01/27 no complaints, [facility], otherwise, no complaints this am Objective Objective Current Medications Medications (Trade) Dose Ordered Sig/Gloria Route PRN Reason Start Time Stop Time Status Last Admin Dose Admin Acetaminophen (Tylenol) 650 mg Q6H PRN ORAL fever T>100.3 and mild pain 01/24/20 13:27 02/21/20 13:26 Aspirin (ASA) 81 mg BID ORAL 01/24/20 18:00 03/07/20 19:59 01/27/20 17:01 Bisacodyl (Dulcolax) 10 mg DAILYPRN PRN RECTAL Constipation 01/24/20 19:00 04/21/20 18:59 Docusate Sodium (Colace) 100 mg TWICE A DAY ORAL 01/25/20 10:45 02/24/20 10:44 01/27/20 17:01 Furosemide (Lasix) 20 mg DAILY ORAL 01/25/20 09:00 02/22/20 08:59 01/26/20 08:34 Pantoprazole (Protonix) 40 mg DAILY ORAL 01/25/20 09:00 02/22/20 08:59 01/27/20 08:22 Pentoxifylline (TRENtal) 400 mg TID ORAL 01/24/20 18:00 04/21/20 20:59 01/27/20 17:01 Polyethylene Glycol (Miralax) 17 gm DAILY PRN ORAL Constipation 01/25/20 10:45 02/24/20 10:44 Potassium Chloride (K-Dur) 20 meq DAILY ORAL 01/25/20 09:00 04/22/20 08:59 01/27/20 08:21 Tamsulosin HCl (Flomax) 0.4 mg BEDTIME ORAL 01/24/20 21:00 02/23/20 20:59 Tramadol HCl (Ultram) 50 mg Q12H PRN ORAL Severe Pain (Pain Scale 7-10) 01/24/20 13:30 01/29/20 13:29 Last 24 Hour Vital Signs Date Time Temp Pulse Resp B/P (MAP) Pulse Ox O2 Delivery O2 Flow Rate FiO2 01/28/20 04:00 98.0 66 19 121/69 (86) 97 01/28/20 00:00 97.4 68 19 147/78 (101) 100 01/27/20 22:30 74 19 100 30 01/27/20 21:00 Room Air 01/27/20 20:00 97.7 72 19 158/81 (106) 99 01/27/20 17:01 129/64 01/27/20 16:00 97.3 69 18 129/64 (85) 98 01/27/20 13:39 127/79 01/27/20 12:00 97.0 66 18 127/79 (95) 98 01/27/20 09:00 Room Air 01/27/20 08:22 138/71 01/27/20 08:00 97.7 73 19 134/81 (98) 96 01/27/20 04:00 97.9 67 18 118/73 (88) 99 01/27/20 00:00 97.2 78 18 135/86 (102) 96 01/26/20 22:56 74 18 98 30 01/26/20 21:00 Room Air 01/26/20 20:00 97.1 86 20 133/88 (103) 97 01/26/20 17:51 116/64 01/26/20 16:00 96.8 80 20 116/64 (81) 96 01/26/20 12:40 109/59 01/26/20 12:00 96.2 78 20 112/61 (78) 97 01/26/20 10:30 74 18 98 30 01/26/20 09:30 79 25 98 30 01/26/20 09:00 Room Air 01/26/20 08:36 109/59 01/26/20 08:00 96.4 75 18 101/53 (69) 96 01/26/20 07:50 109/59 (76) Intake and Output 01/27/20 01/28/20 19:00 07:00 Intake Total 840 ml Output Total 1000 ml 700 ml Balance -160 ml -700 ml Intake Oral 840 ml Output Urine Total 1000 ml 700 ml # Voids 2 # Bowel Movements 1 Labs Test 01/25/20 10:20 01/26/20 09:05 01/27/20 06:00 Lactate Dehydrogenase 162 U/L (81-234) White Blood Count 4.5 K/UL (4.8-10.8) 5.2 K/UL (4.8-10.8) Red Blood Count 4.10 M/UL (4.70-6.10) 4.18 M/UL (4.70-6.10) Hemoglobin 13.7 G/DL (14.2-18.0) 14.0 G/DL (14.2-18.0) Hematocrit 41.3 % (42.0-52.0) 41.9 % (42.0-52.0) Mean Corpuscular Volume 101 FL (80-99) 100 FL (80-99) Mean Corpuscular Hemoglobin 33.5 PG (27.0-31.0) 33.6 PG (27.0-31.0) Mean Corpuscular Hemoglobin Concent 33.3 G/DL (32.0-36.0) 33.5 G/DL (32.0-36.0) Red Cell Distribution Width 12.6 % (11.6-14.8) 12.6 % (11.6-14.8) Platelet Count 150 K/UL (150-450) 141 K/UL (150-450) Mean Platelet Volume 6.4 FL (6.5-10.1) 6.5 FL (6.5-10.1) Neutrophils (%) (Auto) 65.3 % (45.0-75.0) 62.1 % (45.0-75.0) Lymphocytes (%) (Auto) 24.7 % (20.0-45.0) 25.9 % (20.0-45.0) Monocytes (%) (Auto) 5.1 % (1.0-10.0) 7.6 % (1.0-10.0) Eosinophils (%) (Auto) 3.6 % (0.0-3.0) 3.0 % (0.0-3.0) Basophils (%) (Auto) 1.4 % (0.0-2.0) 1.5 % (0.0-2.0) Sodium Level 142 MMOL/L (136-145) Potassium Level 4.0 MMOL/L (3.5-5.1) Chloride Level 106 MMOL/L (98-107) Carbon Dioxide Level 30 MMOL/L (21-32) Anion Gap 6 mmol/L (5-15) Blood Urea Nitrogen 19 mg/dL (7-18) Creatinine 1.2 MG/DL (0.55-1.30) Estimat Glomerular Filtration Rate > 60 mL/min (>60) Glucose Level 98 MG/DL (74-106) Calcium Level 8.8 MG/DL (8.5-10.1) Hepatitis A IgM Antibody Negative (Negative) Hepatitis B Surface Antigen Negative (Negative) Hepatitis B Core IgM Antibody Negative (Negative) Hepatitis C Antibody <0.1 s/co ratio HIV (1&2) Antibody Rapid Negative (NEGATIVE) Micro Microbiology Date/Time Source Procedure Growth Status 01/27/20 13:42 Nasopharynx SARS-CoV-2 RdRp Gene Assay - Final Complete Height (Feet): 5 Height (Inches): 7.00 Weight (Pounds): 350 Objective General Appearance: WD/WN, moderate distress Lines, tubes and drains: peripheral HEENT: normocephalic, atraumatic Respiratory/Chest: lungs clear Cardiovascular/Chest: normal rate Abdomen: soft, other - obese with some RUQ discomfort. 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
--- NOTE | 2020-01-28 07:33 | NUR ---
NURSE NOTES: pt is in the bed alert and awake. respiration is even and unlabred. denies any abdominal pain and discomfort at this time. nurse exchanges greetings with pt. no acute distress noted. call light is within reach. Addendum: 01/28/20 at 0738 by Boni Newby RN NURSE NOTES: pt is in the bed alert and awake. respiration is even and unlabored. denies any abdominal pain and discomfort at this time. nurse exchanges greetings with pt. no acute distress noted. call light is within reach
--- NOTE | 2020-01-28 07:58 | Urology Progress Note ---
Assessment/Plan Status: stable, unchanged Assessment/Plan: 1. Solid left renal mass, most consistent with renal cell carcinoma. 2. Abdominal pain history. 3. Hematuria history. 4. BPH history. 5. Mild lower urinary tract symptoms. monitor clinically med/onc w/u considering nephrectomy at some point will likely have to done at tertiary care center given all comorbidities flomax added renal fxn stable d/w primary service Subjective Allergies: Coded Allergies: SULFAMETHOXAZOLE (Verified Allergy, Unknown, 01/22/20) TRIMETHOPRIM (Verified Allergy, Unknown, 01/22/20) VANCOMYCIN (Verified Allergy, Unknown, 01/22/20) Subjective all noted, feels fair refused discharge to SNF last night Objective Last 24 Hour Vital Signs Date Time Temp Pulse Resp B/P (MAP) Pulse Ox O2 Delivery O2 Flow Rate FiO2 01/28/20 04:00 98.0 66 19 121/69 (86) 97 01/28/20 00:00 97.4 68 19 147/78 (101) 100 01/27/20 22:30 74 19 100 30 01/27/20 21:00 Room Air 01/27/20 20:00 97.7 72 19 158/81 (106) 99 01/27/20 17:01 129/64 01/27/20 16:00 97.3 69 18 129/64 (85) 98 01/27/20 13:39 127/79 01/27/20 12:00 97.0 66 18 127/79 (95) 98 01/27/20 09:00 Room Air 01/27/20 08:22 138/71 01/27/20 08:00 97.7 73 19 134/81 (98) 96 Intake and Output 01/27/20 01/28/20 19:00 07:00 Intake Total 840 ml Output Total 1000 ml 700 ml Balance -160 ml -700 ml Intake Oral 840 ml Output Urine Total 1000 ml 700 ml # Voids 2 # Bowel Movements 1 Microbiology Date/Time Source Procedure Growth Status 01/27/20 13:42 Nasopharynx SARS-CoV-2 RdRp Gene Assay - Final Complete 01/22/20 21:20 Rectum - Final NO CARBAPENEM-RESISTANT ENTEROBACTERI... Complete Current Medications Medications (Trade) Dose Ordered Sig/Gloria Route PRN Reason Start Time Stop Time Status Last Admin Dose Admin Acetaminophen (Tylenol) 650 mg Q6H PRN ORAL fever T>100.3 and mild pain 01/24/20 13:27 02/21/20 13:26 Aspirin (ASA) 81 mg BID ORAL 01/24/20 18:00 03/07/20 19:59 01/27/20 17:01 Bisacodyl (Dulcolax) 10 mg DAILYPRN PRN RECTAL Constipation 01/24/20 19:00 04/21/20 18:59 Docusate Sodium (Colace) 100 mg TWICE A DAY ORAL 01/25/20 10:45 02/24/20 10:44 01/27/20 17:01 Furosemide (Lasix) 20 mg DAILY ORAL 01/25/20 09:00 02/22/20 08:59 01/26/20 08:34 Pantoprazole (Protonix) 40 mg DAILY ORAL 01/25/20 09:00 02/22/20 08:59 01/27/20 08:22 Pentoxifylline (TRENtal) 400 mg TID ORAL 01/24/20 18:00 04/21/20 20:59 01/27/20 17:01 Polyethylene Glycol (Miralax) 17 gm DAILY PRN ORAL Constipation 01/25/20 10:45 02/24/20 10:44 Potassium Chloride (K-Dur) 20 meq DAILY ORAL 01/25/20 09:00 04/22/20 08:59 01/27/20 08:21 Tamsulosin HCl (Flomax) 0.4 mg BEDTIME ORAL 01/24/20 21:00 02/23/20 20:59 Tramadol HCl (Ultram) 50 mg Q12H PRN ORAL Severe Pain (Pain Scale 7-10) 01/24/20 13:30 01/29/20 13:29 Height (Feet): 5 Height (Inches): 7.00 Weight (Pounds): 350 Objective exam stable venous duplex and CT A/P noted chest CT noted, negative Souleymane Raza MD Jan 28, 2020 07:58
[2020-01-28 08:00] VITALS: BP 143/89
--- NOTE | 2020-01-28 08:00 | NUR ---
NURSE NOTES: patient refuses AM lab x 2. educated patient the benefits of lab draw per MD's order. Patient is noncompliant. Dr. Braxton aware.
[2020-01-28] MEDS: Aspirin Baby 81mg ORAL SCH (09:15)
[2020-01-28] MEDS: Docusate 100mg cap ORAL SCH (09:15)
--- NOTE | 2020-01-28 09:46 | Discharge Summary ---
Discharge Summary Hospital Course Date of Admission Jan 22, 2020 at 10:26 Date of Discharge 01/28/20 Admitting Diagnosis abdominal pain, choledocholithiasis, renal mass HPI Noel Gray is a 69 year old male who was admitted on Jan 22, 2020 at 10:26 for Renal Mass, Abdominal Pain Hospital Course Assessment/Plan: 69-year-old male with prior history of possible renal cancer and gallstones presenting with: # Abdominal pain RUQ US with gallstones AND 4.8 CM X 5.6 CM LEFT LOWER POLE RENAL MASS Dr. Shultz from oncology consulted. Surgery consultation with Dr. Poole - no gallbladder surgery recommended Urology consultation with Dr. Raza, follow up as outpatient at [facility] LFT's and TB within normal limits Symptomatic treatment with tramadol # LEFT renal cancer - Not operated at [facility] last month. Oncology and Urology consultation ( Dr. Raza ) NOTED. OUTPATIENT FOLLOW UP at [facility] to follow as he needs tertiary level hospital for intervention. CTAP [facility] 01/24/20 NOW INCREASED TO 6.1 cm L renal mass CT CHEST 01/25/20 without metastasis LA [facility] CTAP W CONTRAST 12/28/19 5.8 CM PARTIALLY EXOPHYTIC HETEROGENEOUSLY ENHANCING SOFT TISSUE MASS AT THE INFERIOR POLE OF THE LEFT KIDNEY. 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 Use only ASA for now bilateral lower extremity US with chronic DVT # FULL CODE # disposition likely to return to SNF due to limitation with ADL's and lack of permanent home in [place]. Discharge Discharge Vital Signs Last Vital Signs Date Time Temp Pulse Resp B/P (MAP) Pulse Ox O2 Delivery O2 Flow Rate FiO2 01/28/20 09:16 143/89 01/28/20 08:00 98.2 72 19 96 01/27/20 22:30 30 01/27/20 21:00 Room Air Discharge Disposition Patient was discharged to SNF Discharge Diagnoses: (1) Renal mass (2) Abdominal pain (3) Unspecified systolic (congestive) heart failure (4) Peripheral vascular disease, unspecified (5) Spinal stenosis, site unspecified (6) Malignant melanoma of skin, unspecified Discharge Instructions Discharge Instructions Services Upon Discharge: day care Activity: resume normal activities May Return to Work/School On: Jan 27, 2020 Benita Braxton MD Jan 28, 2020 09:46
--- NOTE | 2020-01-28 11:13 | NUR ---
*-*DISCHARGE PLANNED*-* PATIENT HAS BEEN ACCEPTED AND [facility]: [phone] FOR NURSE TO NURSE REPORT ROOM# 20.B SKILLED [facility] TRANSPORTATION SET FOR 1:30pm S/W MATTHEW [id number]
[2020-01-28 12:00] VITALS: BP 145/75
[2020-01-28 13:19] VITALS: BP 145/75
--- NOTE | 2020-01-28 13:45 | NUR ---
NURSE NOTES: Patient is discharged to [facility] without any signs of distress. Patient is alert and awake. A&O x 4. Respiration is even and unlabored on room air. Denies any pain and discomfort at this time. skin is intact with BLE edema noted. IV site and wrist band removed. provided discharge teaching and after care instructions; patient verbalized understanding. Patient is placed in a gurney, transported via [facility] accompanied by [address] [employer].
== END 2020-01-28 13:48 | DRG 445 ==
LOC: EDBD 08:55 → EMR 09:25 → 2E 10:26 → 4E 01-24 13:32
DX: K80.20 Calculus of gallbladder without cholecystitis without obstruction (principal); I50.20 Unspecified systolic (congestive) heart failure; Z68.43 Body mass index [BMI] 50.0-59.9, adult; C64.9 Malignant neoplasm of unspecified kidney, except renal pelvis; I82.413 Acute embolism and thrombosis of femoral vein, bilateral; I82.433 Acute embolism and thrombosis of popliteal vein, bilateral; D61.818 Other pancytopenia; I73.9 Peripheral vascular disease, unspecified; K57.30 Diverticulosis of large intestine without perforation or abscess without bleeding; K76.0 Fatty (change of) liver, not elsewhere classified; M16.12 Unilateral primary osteoarthritis, left hip; N28.89 Other specified disorders of kidney and ureter; E66.9 Obesity, unspecified; Z88.1 Allergy status to other antibiotic agents; Z88.2 Allergy status to sulfonamides; Z86.718 Personal history of other venous thrombosis and embolism; Z86.711 Personal history of pulmonary embolism; Z79.82 Long term (current) use of aspirin; M48.00 Spinal stenosis, site unspecified; C43.9 Malignant melanoma of skin, unspecified; N40.1 Benign prostatic hyperplasia with lower urinary tract symptoms
CPT/HCPCS: 36415; 71260; 74177; 76700; 80048; 80053; 81003; 82150; 83036; 83605; 83615; 83690; 83735; 84100; 85025; 85610; 85651; 85730; 86140; 86703; 86705; 86709; 86803; 86900; 86901; 87081; 87340; 93970; 94660; 96374; 99285; J2405; J8499; U0002